=== PATIENT | female | born 2000 | race Caucasian/White ===

== ENCOUNTER 2024-10-25 09:32 | Emergency (ER) | payer MEDICAID, SELFPAY ==
[2024-10-25 09:48] VITALS: BP 132/85; PULSE 99; RESP 19; TEMP 37.2; O2SAT 98; BMI 34.4
--- NOTE | 2024-10-25 09:55 | XR_ITS ---
Examination: Complete OB ultrasound, less than 14 weeks, transabdominal Date and time of exam: October 25, 2024 1016 hrs. Indications: Vaginal bleeding beginning 2 hours ago Technique: Obstetrical ultrasound images less than 14 weeks performed via transabdominal imaging Findings: A normal shaped single intrauterine gestation is present in the uterus. Uterus 13.2 x 9.3 x 9.8 cm pole 6.4 cm corresponds to 12 weeks 6 days gestational age Cardiac motion 166 BPM Ultrasonographic survey of visible and placental structures unremarkable. Amniotic fluid volume appears appropriate for this estimated gestational age. Right ovary 3.6 x 1.9 x 2.2 cm arterial flow Left ovary 4.1 x 2.3 x 3.0 cm arterial flow No fluid in the cul-de-sac Impression: Viable intrauterine gestation 12 weeks 6 days.
[2024-10-25 10:33] LABS: Basophils % (Auto) 0 % (0-2.5); Eosinophils # (Auto) 0.2 Thou/mm3 (0.0-0.5); Eosinophils % (Auto) 2 % (0-10); Hematocrit 31.5 % (36.0-46.0); Hemoglobin 9.6 g/dL (12.0-16.0); Immature Granulocytes % (Auto) 0 % (0-0); Immature Granulocytes Auto 0.04 Thou/mm3 (0.00-0.00); Lymphocytes # (Auto) 2.5 Thou/mm3 (1.0-4.8); Lymphocytes % (Auto) 24 % (10-50); Mean Corpuscular HGB Conc 30.5 g/dl (31.0-37.0); Mean Corpuscular Hemoglobin 20.4 pg (25.0-35.0); Mean Corpuscular Volume 67 fL (80-100); Monocytes # (Auto) 0.6 Thou/mm3 (0.0-0.8); Monocytes % (Auto) 5 % (0-12); Neutrophils % (Auto) 68 % (37-80); Nucleated Red Blood Cell % 0 /100 WBC (0); Platelet Count 368 Thou/mm3 (140-440); RDW Standard Deviation 43.9 fL (36.4-46.3); Red Blood Count 4.71 Miln/mm3 (4.00-5.20); White Blood Count 10.3 Thou/mm3 (3.6-11.0)
[2024-10-25 10:57] LABS: Alanine Aminotransferase 12 U/L (10-49); Albumin, Serum 4.8 gm/dL (3.5-5.0); Albumin/Globulin Ratio 1.9 (1.2-2.2); Alkaline Phosphatase 65 U/L (46-116); Anion Gap 8 (7-16); Aspartate Amino Transferase 13 U/L (0-34); BUN/Creatinine Ratio 12 Ratio (12-20); Bilirubin,Total 0.3 mg/dL (0.3-1.2); Blood Urea Nitrogen 7 mg/dL (9-23); Calcium 9.4 mg/dL (8.3-10.6); Calcium (Corrected) 9.4 mg/dL (8.5-10.1); Carbon Dioxide 22.6 mMol/L (20.0-31.0); Chloride 105 mMol/L (98-107); Creatinine (Component) 0.6 mg/dL (0.6-1.3); Estimated Creatinine Clearance 165.2 mL/min (>60); Globulin 2.5 gm/dL (2.3-3.5); Glucose 86 mg/dL (74-106); Osmolality,Calculated 268 (275-295); Potassium 3.9 mMol/L (3.4-5.1); Sodium 136 mMol/L (136-145); Total Protein 7.3 gm/dL (5.7-8.2); eGFR > 60 See Note
--- NOTE | 2024-10-25 11:04 | PD.EDVAGBL ---
ED OB Contraction Preg RMI/HPI General Chief complaint: Vaginal Bleeding Stated complaint: Vaginal bleeding, 12 weeks OB Time Seen by Provider: 10/25/24 09:38 Arrival date/time: 10/25/24 09:32 24-year-old female G5, presents to the emergency department complains of vaginal spotting ongoing x 1 day patient reports being approximate 12 weeks patient reports based on her history she is nervous and came to the ER for further evaluation Limitations: no limitations Related Data Previous Rx's ?Medication ?Instructions ?Recorded ibuprofen 800 mg tablet 800 mg PO Q8H #21 tabs 03/25/24 Allergies Allergy/AdvReac Type Severity Reaction Status Date / Time pineapple Allergy Severe HIVES, Verified 11/07/23 13:55 DIFF. BREATHING Review of Systems Review of Systems Systems Reviewed: All systems reviewed, normal except as documented Constitutional Constitutional: Reports system reviewed and no additional complaints, except as documented, Denies fever(s) and Denies headache(s) Eyes Eyes: Reports system reviewed and no additional complaints, except as documented and Denies blurry vision ENT Ears, Nose, Mouth, and Throat: Reports system reviewed and no additional complaints, except as documented, Denies headache(s), Denies nasal congestion and Denies nasal discharge Cardiovascular Cardiovascular: Reports system reviewed and no additional complaints, except as documented, Denies chest pain and Denies dyspnea Respiratory Respiratory: Reports system reviewed and no additional complaints, except as documented, Denies chest congestion, Denies cough and Denies dyspnea Gastrointestinal Gastrointestinal: Reports system reviewed and no additional complaints, except as documented and Denies abdominal pain Genitourinary Genitourinary: Reports system reviewed and no additional complaints, except as documented and Reports abnormal vaginal bleeding Integumentary/Breasts Skin/Breast: Reports system reviewed and no additional complaints, except as documented and Denies rash Neurologic Neurologic: Reports system reviewed and no additional complaints, except as documented, Reports as per HPI and Denies headache(s) Past Medical History Past Medical History NEUROLOGIC: Positive Neurological Disorders and Seizures CARDIAC: Negative Cardiac Disorders, Congestive Heart Failure, Edema, Cellulitis or Varicose Veins RESPIRATORY: Negative Chronic Obstructive Pulmonary Disease (COPD), Asthma, Tuberculosis, Pulmonary Embolism or Sleep Apnea GASTROINTESTINAL: Positive Gastrointestinal Disorders and Gall Bladder Disease; Negative Hepatitis GENITOURINARY: Negative Genitourinary Disorders or Renal Disease REPRODUCTIVE: Positive Breast Cancer and Previous Pregnancies MUSCULOSKELETAL: Negative Musculoskeletal Disorders ENT: Positive Deafness ENDOCRINE: Negative Endocrine Disorders, Diabetes Mellitus Type 1 or Diabetes Mellitus Type 2 HEMATOLOGIC: Positive Blood Disorders and Anemia; Negative Sickle Cell Disease OTHER HISTORY: Positive Breast Cancer; Negative Hospitalization, Autoimmune Disease, Shingles, Falls, Blood Transfusions, Blood Transfusion Reaction, Anesthesia Reactions, Chemotherapy, Radiation Therapy, MRSA, Chicken Pox, Measles, Mumps, Clostridium Difficile or Cancer Family History FAMILY HISTORY: Positive Family Respiratory Disorders, Family Cardiac Disorders, Family Gastrointestinal Problems and Family Surgery; Negative Family Psychiatric Problems, Family Cancer or Family Anesthesia Reaction Surgical History SURGICAL: Positive Tympanostomy Tube and Tonsillectomy; Negative Cardiac Surgery, Pacemaker or Section Social History SMOKING STATUS: Never smoker SUBSTANCE USE: does not use ED Exam General Limitations: Present no limitations General appearance: Present alert and in no apparent distress Head Head exam: Present atraumatic, normocephalic and normal inspection Eye Eye exam: Present normal appearance, PERRL and EOMI; Absent conjunctival injection ENT ENT exam: Present normal exam, normal oropharynx and mucous membranes moist Neck Neck exam: Present normal inspection, full ROM and trachea midline Chest Chest inspection: Present normal inspection and symmetric chest wall rise Respiratory Respiratory exam: Present normal lung sounds bilaterally; Absent respiratory distress Cardiovascular Cardiovascular exam: Present regular rate, normal rhythm and normal heart sounds Abdominal Exam Abdominal exam: Present soft and normal bowel sounds; Absent distention, tenderness, guarding, rebound, rigidity or tenderness at McBurney's Point Abdominal tenderness: Absent RUQ or RLQ Extremities Exam Extremities exam: Present normal inspection and full ROM Back Exam Back exam: Present normal inspection and full ROM Neurological Exam Neurological exam: Present alert, oriented X3 and CN II-XII intact Psychiatric Psychiatric exam: Present normal affect and normal mood Skin Skin exam: Present warm, dry, intact and normal color Course Quality Measures none Orders Category Date Time Status US OB <= 14 weeks fetus Stat Exams 10/25/24 09:55 Completed ABO/RH Type Stat Lab 10/25/24 10:12 Completed Beta HCG,Quantitative Stat Lab 10/25/24 10:12 Completed CBC Stat Lab 10/25/24 10:12 Completed Comprehensive Metabolic Panel Stat Lab 10/25/24 10:12 Completed Vital Signs Vital signs: Vital Signs Temperature 99.0 F 10/25/24 09:48 Pulse Rate 99 10/25/24 09:48 Respiratory Rate 19 10/25/24 09:48 Blood Pressure 132/85 H 10/25/24 09:48 Pulse Oximetry (%) 98 10/25/24 09:48 Oxygen Delivery Method Room Air 10/25/24 09:48 O2 saturation 98% on room air within normal limit Vaginal Bleeding MDM Narrative MDM Narrative: 24-year-old female G5, presents to the emergency department complains of vaginal spotting ongoing x 1 day patient reports being approximate 12 weeks patient reports based on her history she is nervous and came to the ER for further evaluation On exam patient well-appearing patient does not appear ill or toxic in no acute distress Ultrasound consistent with viable hCG is reassuringPatient is O+ Patient discharged home in no distress to follow-up with LEGAL ARBITRATOR in the next 24 to 48 hours and for any worsening symptoms to return to the ER immediately Patient data External records reviewed:: [facility] previous records Clinical information provided by:: patient Social determinants that could affect healthcare access:: none Patient has the following chronic illnesses:: None How is presenting disease/condition affected by chronic disease/condition?: no chronic disease Evaluation data The following diagnostics were reviewed and interpreted by me:: lab results and radiology exam(s) Lab and/or radiology exams considered but not ordered:: Labs and radiology obtained Interpretation Summary: Reviewed by me Medications / Prescriptions Medications or Prescriptions considered but not ordered:: No meds Medication administrations:: No meds Consultations Consultation(s) initiated? (list below): No Diagnosis Vaginal Bleeding Differential Diagnosis: missed and threatened Most likely diagnosis given after review of the tests above:: Bleeding early Admission Indicated Admission indicated?: not indicated Admission Request Was there a request for admission?: No Disposition Plan Disposition Plan: Discharge Discharge Attestation Discharge Attestation: The patient and all family members were given an opportunity to ask questions and understood the discharge instructions. Discharge instructions specifically effects, indications for sooner follow up or return to the emergency department, and the expected course of current diagnosis. Patient condition: Stable Discharge Plan Plan Patient Disposition: HOME (Self Care) Disposition Comment: Stable Prescriptions/Referrals Prescriptions/Med Rec: No Action ibuprofen 800 mg tablet 800 mg PO Q8H Qty: 21 0RF Referrals: Blaze Benítez MD [Primary Care Provider] - In 1 week Problem List Clinical Impression: Bleeding in early Patient/Caregiver Discharge Instructions Education Materials: Bleeding During Early Additional Instructions: Please follow-up with LEGAL ARBITRATOR as discussed for worsening symptoms return immediately Print Language: Latvian Stand Alone Forms: [employer] Award Info., Work/School Release, Patient Portal Info Letter PA/CHARTERED FINANCIAL ANALYST Supervising Physician PA/CHARTERED FINANCIAL ANALYST Supervising Physician: Dr Quintana
[2024-10-25 11:37] LABS: Beta HCG,Quantitative 55771 mIU/mL (<5.0)
== END 2024-10-25 11:10 | disposition home or self-care (01) ==
PROVIDERS: Nurse Practitioner Primary Care; Emergency Provider Emergency Medicine; PCP Family Medicine
DX: O20.9 Hemorrhage in early pregnancy, unspecified (principal); Z3A.12 12 weeks gestation of pregnancy
CPT/HCPCS: 36415; 76801; 80053; 84702; 85025; 86900; 86901; 99284

== ENCOUNTER 2025-02-12 16:59 | Observation (INO) | payer MEDICAID, SELFPAY ==
[2025-02-12] VITALS (34 sets, daily range): BP systolic 105–119; BP diastolic 55–59; PULSE 82–116; RESP 18–119; TEMP 36.9–37.1; O2SAT 85–100; BMI 36.6
--- NOTE | 2025-02-12 17:49 | XR_ITS ---
Examination: Transvaginal ultrasound of the pelvis, Limited Technique: Transvaginal sonographic images pelvis performed using schuster scale imaging Exam date and time: February 12, 2025 1854 hrs. Indications: Vaginal bleeding and discharge beginning 4:00 PM today Findings: Cervix 4.19 cm, closed Impression: Cervix 4.19 cm
--- NOTE | 2025-02-12 17:49 | XR_ITS ---
Examination: Complete OB ultrasound greater than 14 weeks Date and time of exam: February 12, 2025 1646 hrs. Indications: Vaginal bleeding and discharge beginning 4:00 PM today Findings: Viable intrauterine single fetus with single amniotic sac presentation cephalic Cardiac motion 147 BPM Placenta posterior grade 1 Umbilical cord insertion seen Amniotic fluid index 5.8 cm spine anterior Cervix 4.1 cm Ovaries obscured by the fetus Composite estimated gestational age based on BPD, head circumference, abdominal circumference, femur length is 20 weeks 2 days Estimated weight 1212 g. Survey of intracranial anatomy, spinal anatomy, abdominal anatomy, four-chamber heart performed with no abnormalities identified. Impression: Viable intrauterine gestation cephalic presentation.
[2025-02-12] MEDS: ACETAMINOPHEN 325 MG TABLET 975 MG PO (18:00)
[2025-02-12 18:26] LABS: Collection Type, Urine Clean Catch
[2025-02-12 19:07] LABS: Bacteria,Urine Rare; Bilirubin,Urine Negative (Negative); Blood,Urine Negative (Negative); Clarity,Urine Turbid (Clear/Hazy); Color,Urine Yellow (Lt Yel-Yel); Glucose, Urine Negative (Negative); Ketones,Urine Negative (Negative); Leukocyte Esterase,Urine Positive (Negative); Nitrite,Urine Negative (Negative); Protein,Urine Trace (Neg - Trace); RBC,Urine 4 /hpf (0-3); Specific Gravity,Urine 1.023 (1.001-1.035); Squamous Epithelial Cell,Urine 41 /hpf (0-5); Urobilinogen,Urine Negative mg/dL (0.0-1.0); WBC,Urine 47 /hpf (0-5)
[2025-02-12] MEDS: cefTRIAXone 1,000 MG, LIDOCAINE 1% 20 ML 2.1 ML IM (20:31)
== END 2025-02-12 20:35 | disposition home or self-care (01) ==
PROVIDERS: Admitting Provider Specialist; PCP Family Medicine; Visit Provider Specialist
DX: O46.92 Antepartum hemorrhage, unspecified, second trimester (principal); Z3A.20 20 weeks gestation of pregnancy
CPT/HCPCS: 59025; 59899; 76805; 76830; 81001; 87086; 96372; J0696; J3490; A9270

== ENCOUNTER 2025-03-20 08:34 | Observation (INO) | payer MEDICAID, SELFPAY ==
[2025-03-20] VITALS (149 sets, daily range): BP systolic 87–127; BP diastolic 42–59; PULSE 100–155; RESP 18–98; TEMP 36.3–36.8; O2SAT 91–100; BMI 34.9; BMI 35.9
--- NOTE | 2025-03-20 08:52 | XR_ITS ---
Examination: Biophysical profile, ultrasound Date and time of exam: March 20, 2025 0931 hours INDICATION: Pelvic cramping beginning today Technique: Multiple transabdominal sonographic images of the pelvis abdomen obtained. Attention is directed to the breathing movement, gross body movement, amniotic fluid volume and tone. Findings: Amniotic fluid index 7.0 cm Total biophysical profile is 8 of 8. breathing movement is 2. Gross body movement is 2. tone is 2. Qualitative amniotic fluid volume is 2 Impression: Biophysical profile is 8 of 8.
[2025-03-20] MEDS: ONDANSETRON INJ 2 MG/ML INJ 2 ML 4 MG IVP (09:30)
--- NOTE | 2025-03-20 09:33 | PC.NURSE ---
Diver'S Tender at bedside for complete OB
--- NOTE | 2025-03-20 09:42 | PC.NURSE ---
0835 pt arrived via wheelchair to Triage with c/o Nausea/Vomiting that began yesterday at 2100 and has continued unitl now. She also has c/o vaginal Cramping that is irregular. Denies any leaking or bleeding, reports active FM. denies trauma or exposure to any illnesses. Abdomen soft at palpation. , Ectopic 2022. FHT per doppler 150. Denies any other medical history. Reports good PNC at 6 weeks. Sees Kizzy CABAN at [facility]. in early ultrasounds for baby but pt states last US on 02/27 she was told was not visible anymore. No other complaints.
--- NOTE | 2025-03-20 09:47 | PC.NURSE ---
0845- MD Lea in unit covering for [facility]. Sbar report given, orders received for IV with 1l LR. PRN Zofran 4m IVP and Phenegran 25mg IVPB prn, and Protonix 40mg IVP. Complete OB ordered, NST, CBC, and CMP.
--- NOTE | 2025-03-20 09:52 | PC.NURSE ---
0950- EFMX2 REAPPLIED. COMPLETE OB COMPLETED.
[2025-03-20 09:59] LABS: Basophils % (Auto) 0 % (0-2.5); Eosinophils % (Auto) 0 % (0-10); Hematocrit 25.6 % (36.0-46.0); Immature Granulocytes % (Auto) 1 % (0-0); Immature Granulocytes Auto 0.11 Thou/mm3 (0.00-0.00); Lymphocytes # (Auto) 0.5 Thou/mm3 (1.0-4.8); Lymphocytes % (Auto) 4 % (10-50); Mean Corpuscular HGB Conc 29.7 g/dl (31.0-37.0); Mean Corpuscular Hemoglobin 20.2 pg (25.0-35.0); Mean Corpuscular Volume 68 fL (80-100); Monocytes # (Auto) 0.3 Thou/mm3 (0.0-0.8); Monocytes % (Auto) 2 % (0-12); Neutrophils # (Auto) 12.5 Thou/mm3 (1.8-7.7); Neutrophils % (Auto) 93 % (37-80); Nucleated Red Blood Cell % 0 /100 WBC (0); Platelet Count 295 Thou/mm3 (140-440); Red Blood Count 3.76 Miln/mm3 (4.00-5.20); White Blood Count 13.5 Thou/mm3 (3.6-11.0)
[2025-03-20 10:00] LABS: Hemoglobin 7.6 g/dL (12.0-16.0)
[2025-03-20 10:13] LABS: Alanine Aminotransferase 7 U/L (10-49); Albumin, Serum 4.3 gm/dL (3.5-5.0); Albumin/Globulin Ratio 1.7 (1.2-2.2); Alkaline Phosphatase 134 U/L (46-116); Anion Gap 14 (7-16); Aspartate Amino Transferase 15 U/L (0-34); BUN/Creatinine Ratio 12 Ratio (12-20); Blood Urea Nitrogen 6 mg/dL (9-23); Calcium 9.5 mg/dL (8.3-10.6); Calcium (Corrected) 9.5 mg/dL (8.5-10.1); Carbon Dioxide 17.1 mMol/L (20.0-31.0); Chloride 104 mMol/L (98-107); Creatinine (Component) 0.5 mg/dL (0.6-1.3); Estimated Creatinine Clearance 195.5 mL/min (>60); Globulin 2.6 gm/dL (2.3-3.5); Glucose 101 mg/dL (74-106); Osmolality,Calculated 267 (275-295); Potassium 3.7 mMol/L (3.4-5.1); Sodium 135 mMol/L (136-145); Total Protein 6.9 gm/dL (5.7-8.2); eGFR > 60 See Note
[2025-03-20] MEDS: PANTOPRAZOLE INJ 40 MG VIAL IVP (10:46)
[2025-03-20] MEDS: SODIUM CHLORIDE 0.9% 250 ML 250 ML 999 ML IV ×2 (11:26→13:15)
--- NOTE | 2025-03-20 12:10 | PC.NURSE ---
approx 1100- MD called with lab results including hgb 7.5, bpp 8/8 lisa 7.0. Per Md, observe for another 2 hours and the repeat sve and reevaluate POC.
[2025-03-20] MEDS: PROMETHAZINE INJ 25 MG in SODIUM CHLORIDE 0.9% 50 ML 102 MG IV (12:13)
[2025-03-20] MEDS: SODIUM CHLORIDE 0.9% 1000 ML 1,000 ML 200 ML IV ×2 (13:21→19:41)
[2025-03-20] MEDS: ACETAMINOPHEN IVPB 1,000 MG/100 ML VIAL 250 MG IV ×2 (13:22→19:41)
[2025-03-20] MEDS: TERBUTALINE SULF INJ 1 MG/ML VIAL 0.25 MG SC (13:22)
--- NOTE | 2025-03-20 15:38 | PD.LDANTE ---
Documentation for date of: 03/20/25 OB Labor/Induct. HPI History of Present Illness Chief complaint: Contractions and pain : 5 Para: 1 Term pregnancies: 0 pregnancies: 1 Living children: 1 History of Abortions: Spontaneous and Elective: 3 History of Vaginal deliveries: 1 History of sections: No History of : No Date of last menstrual period: 08/12/24 LIDA: 05/09/25 Gestational Age (weeks): 32 Gestational Age (days): 6 Gestational age based on last menstrual period: 31 History of present illness: 24-year-old 5 para 0-1-3-1 at 32 weeks and 6 days presents to labor and delivery with severe lower abdominal pain as well as contractions. Patient also reports nausea and vomiting, she denies any leakage of fluid or vaginal bleeding. Notably she has a history of delivery in her previous at 35 weeks. Patient states that she went into spontaneous labor with dilatation of cervix without any rupture of membranes in her previous . She has a history of 2 therapeutic abortions and 1 ectopic in the past. She denies any fevers or chills or any other systemic symptoms at this time. History of Present Adequate Care: Yes Labs Labs: Positive: Rubella Titre, Negative: RPR, Hepatitis B, HIV, Chlamydia and Gonorrhea and Unknown: Herpes Type 1, Herpes Type 2, Group Beta Strep and Covid-19 Review of Systems Review of Systems Systems Reviewed: All systems reviewed, normal except as documented Past Medical History Surgical History SURGICAL: Negative Section Meds Home Medications and Allergies Home Medications ?Medication ?Instructions ?Recorded ?Confirmed ?Type ferrous sulfate 325 mg (65 mg 325 mg PO .qod 02/12/25 03/20/25 History iron) tablet folic acid 1 mg tablet 1 mg PO QDAY 02/12/25 03/20/25 History vits no.130-ferrous fum 1 tab PO .q day 02/12/25 03/20/25 History 27 mg iron-folic acid 800 mcg tablet ( Vitamin) Allergies Allergy/AdvReac Type Severity Reaction Status Date / Time pineapple Allergy Severe HIVES, Verified 02/12/25 17:44 DIFF. BREATHING OB Exam Physical Exam Vital signs: Temp Pulse Resp BP Pulse Ox 98.1 F 130 H 18 99/53 L 98 03/20/25 14:30 03/20/25 15:37 03/20/25 08:35 03/20/25 15:37 03/20/25 15:35 Constitutional Constitutional: no acute distress Routine HEENT Exam Head: Present normocephalic and atraumatic Eye: Present EOMI and PERRL ENT: Present mucous membranes moist Routine Neck Exam Neck: Present supple and trachea midline Routine Cardiovascular Exam Cardiovascular: Present RRR Routine Abdominal Exam Abdominal: Present soft and normoactive bowel sounds Detailed Labor and Delivery Exam Dilation (cm): 0 Effacement (%): 0 Cervix position: mid station: -4 Consistency: firm Presentation: Vertex Membranes: intact Baseline heart rate: 130 monitor accelerations: 15x15 monitor decelerations: None Contraction frequency (min): 10 Routine Extremities Exam Extremities: Present full ROM Routine Skin Exam Skin: Present intact, dry and warm Routine Neurological Exam Neurological: Present alert, oriented X3 and CN II-XII intact Routine Psychiatric Exam Psychiatric: Present normal affect and normal thought process OB Results Labs 03/20/25 09:26 03/20/25 09:26 Labs: Short CBC 03/20/25 Range/Units 09:26 WBC 13.5 H (3.6-11.0) Thou/mm3 Hgb 7.6 L (12.0-16.0) g/dL Hct 25.6 L (36.0-46.0) % Plt Count 295 (140-440) Thou/mm3 [facility] 03/20/25 09:26 Sodium 135 L Potassium 3.7 Chloride 104 Carbon Dioxide 17.1 L BUN 6 L Creatinine 0.5 L Glucose 101 Calcium 9.5 Liver Function 03/20/25 Range/Units 09:26 Total Bilirubin 1.0 (0.3-1.2) mg/dL AST 15 (0-34) U/L ALT 7 L (10-49) U/L Alkaline Phosphatase 134 H (46-116) U/L Albumin 4.3 (3.5-5.0) gm/dL OB Assessment & Plan Assessment and Plan (1) contractions: Status: Acute Assessment and plan: Admit to Labor & Delivery for monitoring and management of contractions. Continuous heart rate and contraction monitoring. Cervical exam on admission; repeat if symptoms persist or escalate. IV fluid bolus: 1L Lactated Ringer?s over 1 hour. IV Acetaminophen 1000 mg q6h PRN for uterine cramping or discomfort. Nifedipine (Procardia) 10 mg PO q8h for tocolysis (hold if hypotensive). Betamethasone (Celestone) 12 mg IM now, repeat in 24 hours (x2 doses total) for lung maturity. Morphine 4 mg IV q6h PRN for moderate to severe pain. Labs: CBC with differential, UA with culture, GBS swab Type and screen. Monitor maternal vitals and pain scores q4h. Reassess after initial hydration and medications; repeat cervical exam and update plan based on response. Provide labor education; monitor for signs of labor progression. (2) with history of pre-term labor: Status: Acute
[2025-03-20] MEDS: NIFEdipine 10 MG CAPSULE PO ×2 (15:39→23:27)
[2025-03-20] MEDS: BETAMET ACET/BETAMET NA PH (Celestone) 6 MG/ML VIAL 12 MG IM (15:39)
[2025-03-20] MEDS: DiphenhydrAMINE INJ 50 MG/ML VIAL 25 MG IVP ×2 (15:40→21:40)
[2025-03-20] MEDS: MORPHINE SULF INJ 10 MG/ML VIAL 4 MG IVP ×2 (15:40→21:40)
[2025-03-21] VITALS (328 sets, daily range): BP systolic 91–126; BP diastolic 44–64; PULSE 94–216; RESP 16–18; TEMP 36.1–36.7; O2SAT 88–100
[2025-03-21] MEDS: ACETAMINOPHEN IVPB 1,000 MG/100 ML VIAL 250 MG IV (01:50)
[2025-03-21] MEDS: DiphenhydrAMINE INJ 50 MG/ML VIAL 25 MG IVP (03:16)
[2025-03-21] MEDS: MORPHINE SULF INJ 10 MG/ML VIAL 4 MG IVP ×2 (03:16→22:45)
--- NOTE | 2025-03-21 07:54 | PD.LDPN ---
Documentation for date of: 03/21/25 OB Labor Progress Note Pain Control Pain control: tolerating well Comments: Patient reports cramping pain overnight. She has good movement. No vaginal bleeding or loss of fluids. She was given morphine and Phenergan yesterday and slept. No nausea or vomiting. She states she did have some type of flu when she came in. Of note she is anemic with a hemoglobin of 7.6 and IV iron was written. A second CBC was ordered as her neutrophil percentage was 93% yesterday. Also we will check a urinalysis and a culture. She gets her second dose of steroids today at 1400 Pelvic Exam Dilation (cm): 0 Effacement (%): 75 station: -1 Amniotic membrane status: Intact Contractions Monitor mode: External Contraction frequency: Rare Contraction intensity: Mild Status status: Category l Assessment and Plan Comments: General Diet. Start IV Ancef. Check urinalysis and culture. Give IV iron. Recheck labs today. Possible discharge later today home on oral antibiotics. Will monitor today until later this afternoon. All questions were answered to patient's satisfaction. Of note she does have a history of a 35-week delivery. That baby weighed 6 pounds 15 ounces.
[2025-03-21] MEDS: ceFAZolin/D5W 1 GM IVPB 1 GM/50 ML BAG IV ×2 (08:06→16:24)
[2025-03-21] MEDS: SODIUM CHLORIDE 0.9% 1000 ML 1,000 ML 200 ML IV ×4 (08:06→21:24)
[2025-03-21 08:43] LABS: Collection Type, Urine Voided
[2025-03-21 08:49] LABS: Basophils % (Auto) 0 % (0-2.5); Eosinophils % (Auto) 0 % (0-10); Hematocrit 22.2 % (36.0-46.0); Immature Granulocytes % (Auto) 3 % (0-0); Immature Granulocytes Auto 0.28 Thou/mm3 (0.00-0.00); Lymphocytes % (Auto) 10 % (10-50); Mean Corpuscular HGB Conc 28.8 g/dl (31.0-37.0); Mean Corpuscular Hemoglobin 20.4 pg (25.0-35.0); Mean Corpuscular Volume 71 fL (80-100); Monocytes # (Auto) 0.3 Thou/mm3 (0.0-0.8); Monocytes % (Auto) 3 % (0-12); Neutrophils # (Auto) 8.2 Thou/mm3 (1.8-7.7); Neutrophils % (Auto) 84 % (37-80); Nucleated Red Blood Cell # 0.03 Thou/mm3 (0.00-0.00); Nucleated Red Blood Cell % 0 /100 WBC (0); Platelet Count 261 Thou/mm3 (140-440); RDW Standard Deviation 50.5 fL (36.4-46.3); Red Blood Count 3.14 Miln/mm3 (4.00-5.20); White Blood Count 9.8 Thou/mm3 (3.6-11.0)
[2025-03-21 08:52] LABS: Hemoglobin 6.4 g/dL (12.0-16.0)
[2025-03-21] MEDS: FERRIC SOD GLUC INJ 125 MG in SODIUM CHLORIDE 0.9% 100 ML 110 MG IV (09:59)
--- NOTE | 2025-03-21 10:40 | PC.NURSE ---
Dr. Galindo called, pt rating pain 8/10 feeling ctx every 3-4 mins, tracing showing ctx every 2-4min. Order received for 100 mcg fentanyl and type/screen for 2 units of blood to be transfused for low H/H.
[2025-03-21 10:50] LABS: Bilirubin,Urine Negative (Negative); Blood,Urine Negative (Negative); Clarity,Urine Clear (Clear/Hazy); Color,Urine Yellow (Lt Yel-Yel); Glucose, Urine 3+ (Negative); Ketones,Urine 4+ (Negative); Leukocyte Esterase,Urine Positive (Negative); Nitrite,Urine Negative (Negative); Protein,Urine Trace (Neg - Trace); RBC,Urine 1 /hpf (0-3); Specific Gravity,Urine 1.028 (1.001-1.035); Squamous Epithelial Cell,Urine 7 /hpf (0-5); Urobilinogen,Urine Negative mg/dL (0.0-1.0); WBC,Urine 3 /hpf (0-5)
[2025-03-21] MEDS: fentaNYL CIT INJ 50 mCg/ML AMP 2ML 100 MCG IVP (11:08)
[2025-03-21 12:04] LABS: Amphetamine/Metham Scrn,Ur OB Negative (Negative); Benzoylecgonine Screen, Ur OB Negative (Negative); Opiate Screen,Urine OB Positive (Negative); THC Screen,Urine OB Negative (Negative)
[2025-03-21 12:06] LABS: Opiates U Confirm* See Sep Rpt
[2025-03-21] MEDS: BETAMET ACET/BETAMET NA PH (Celestone) 6 MG/ML VIAL 12 MG IM (14:00)
[2025-03-21] MEDS: ACETAMINOPHEN 325 MG TABLET 650 MG PO (14:52)
[2025-03-21] MEDS: NIFEdipine 10 MG CAPSULE PO ×2 (15:16→22:40)
--- NOTE | 2025-03-21 17:25 | PD.LDPN ---
Documentation for date of: 03/21/25 OB Labor Progress Note Pain Control Comments: Patient still reports cramping abdominal pain. She was given oral Tylenol today and 1 dose of IV fentanyl. No bleeding no loss of fluids. Of note she is quite anemic her second CBC revealed a hemoglobin of 6.4. Patient was given 1 dose of IV iron and 2 units of packed red red blood cells. She was started on Ancef Q8. We will keep her overnight to monitor her hemoglobin in the morning. She received her second dose of steroids today at 1400 Pelvic Exam Dilation (cm): 0 Effacement (%): 75 station: -1 Amniotic membrane status: Intact Contractions Monitor mode: External Contraction frequency: 8-8, irritability Contraction intensity: Mild Status status: Category l Assessment and Plan Plan OB labor note: continuous present management Comments: Okay to shower. Okay for NST every shift. Recheck hemoglobin in the morning. Encourage p.o. hydration as the patient was still very dehydrated based on the UA from today.
--- NOTE | 2025-03-21 18:58 | XR_ITS ---
Examination: Complete OB ultrasound greater than 14 weeks Date and time of exam: March 21, 2025 2006 hours INDICATIONS: Onset of pelvic contractions today Findings: Viable intrauterine single fetus with single amniotic sac presentation cephalic Cardiac motion 129 BPM Placenta fundal grade 2 Umbilical cord insertion 3 vessel is seen Amniotic fluid index 5.3 cm spine maternal right Cervix 3.7 cm Ovaries obscured by bowel gas. Composite estimated gestational age based on BPD, head circumference, abdominal circumference, femur length is 33 weeks 3 days Estimated weight 2089 g. Survey of intracranial anatomy, spinal anatomy, abdominal anatomy, four-chamber heart performed with no abnormalities identified. Impression: Viable intrauterine gestation cephalic presentation.
--- NOTE | 2025-03-21 19:08 | XR_ITS ---
Examination: Retroperitoneal ultrasound, complete Technique: Multiple high resolution grayscale images of the retroperitoneum obtained, including kidneys and bladder. Exam date and time:March 14 70,025 2020 hours INDICATIONS: Flank pain today FINDINGS: Right kidney 12.0 cm renal cortex 2.2 cm Left kidney 12.2 cm cortex 1.8 cm Mild bilateral hydronephrosis Mild bilateral renal parenchymal scar formation No hydronephrosis No bladder mass or bladder calculi Bladder prevoid volume 346 cc IMPRESSION: Mild bilateral hydronephrosis Mild bilateral renal parenchymal scar formation
--- NOTE | 2025-03-21 23:10 | PD.LDPN ---
Documentation for date of: 03/21/25 OB Labor Progress Note Pain Control Comments: Patient continues to have crampy lower abdominal pain. Ultrasound was negative for stones. She has bilateral hydronephrosis and some scarring of her renal parenchyma. Pelvic Exam Dilation (cm): 0 Effacement (%): 75 station: -1 Amniotic membrane status: Intact Comments: Patient not examined since this morning. Contractions Monitor mode: External Contraction frequency: irregular Contraction intensity: Mild Status status: Category l Assessment and Plan Plan OB labor note: continuous present management Comments: Patient given 2 units of blood. Check CBC in the morning. Okay for fentanyl as needed switch to oral pain medications in the morning. Pelvic exam in the morning.
[2025-03-22] VITALS (121 sets, daily range): BP systolic 104–140; BP diastolic 54–84; PULSE 70–141; RESP 16–18; TEMP 36.3–37; O2SAT 91–100
[2025-03-22] MEDS: ceFAZolin/D5W 1 GM IVPB 1 GM/50 ML BAG IV ×4 (00:07→22:24)
[2025-03-22 05:16] LABS: Basophils % (Auto) 0 % (0-2.5); Eosinophils % (Auto) 0 % (0-10); Hematocrit 24.7 % (36.0-46.0); Immature Granulocytes % (Auto) 6 % (0-0); Immature Granulocytes Auto 0.84 Thou/mm3 (0.00-0.00); Lymphocytes # (Auto) 1.6 Thou/mm3 (1.0-4.8); Lymphocytes % (Auto) 12 % (10-50); Mean Corpuscular Volume 73 fL (80-100); Monocytes # (Auto) 0.9 Thou/mm3 (0.0-0.8); Monocytes % (Auto) 6 % (0-12); Neutrophils # (Auto) 10.4 Thou/mm3 (1.8-7.7); Neutrophils % (Auto) 76 % (37-80); Nucleated Red Blood Cell # 0.08 Thou/mm3 (0.00-0.00); Nucleated Red Blood Cell % 1 /100 WBC (0); Platelet Count 254 Thou/mm3 (140-440); RDW Standard Deviation 54.3 fL (36.4-46.3); Red Blood Count 3.37 Miln/mm3 (4.00-5.20); White Blood Count 13.8 Thou/mm3 (3.6-11.0)
[2025-03-22 05:27] LABS: Hemoglobin 7.4 g/dL (12.0-16.0)
[2025-03-22] MEDS: NIFEdipine 10 MG CAPSULE PO ×3 (06:06→22:24)
[2025-03-22] MEDS: ACETAMINOPHEN 325 MG TABLET 650 MG PO ×3 (06:10→20:29)
--- NOTE | 2025-03-22 12:54 | PD.LDPN ---
Documentation for date of: 03/22/25 OB Labor Progress Note Pain Control Comments: Patient still reports cramping pain. No nausea vomiting diarrhea fevers or chills. She is tolerating a general diet. She was sleeping when I came in to round on her. Pelvic Exam Dilation (cm): 1 Effacement (%): 50 station: -3 Amniotic membrane status: Intact Contractions Monitor mode: External Contraction frequency: Irritability Contraction intensity: Moderate Status status: Category l Assessment and Plan Plan OB labor note: continuous present management Comments: Patient with unclear pain. She has had a course of steroids. If she is in prodromal early labor I would not start magnesium on her. She is on nifedipine already. I wrote [place] which I am not sure she has taken. Is not clear what is causing her pain. I debated ordering a CT or MRI but I do not think this would be helpful. She does not have fevers or chills and she is tolerating a general diet so I doubt she has an ovarian torsion or an appendicitis. She is definitely not acting like a typical kidney stone and rolling around the bed with a lot of pain. I think she either has renal colic or early prodromal labor.
[2025-03-22] MEDS: fentaNYL CIT INJ 50 mCg/ML AMP 2ML 100 MCG IVP ×2 (16:06→22:25)
[2025-03-22] MEDS: SODIUM CHLORIDE 0.9% 1000 ML 1,000 ML 200 ML IV (20:33)
[2025-03-23] MEDS: SODIUM CHLORIDE 0.9% 1000 ML 1,000 ML 200 ML IV ×2 (01:36→06:35)
[2025-03-23] MEDS: ceFAZolin/D5W 1 GM IVPB 1 GM/50 ML BAG IV (06:35)
[2025-03-23 06:36] VITALS: BP 129/65; PULSE 83
[2025-03-23] MEDS: ACETAMINOPHEN 325 MG TABLET 650 MG PO (06:37)
[2025-03-23 06:38] VITALS: BP 129/65; PULSE 83
[2025-03-23] MEDS: NIFEdipine 10 MG CAPSULE PO (06:38)
[2025-03-23 07:39] LABS: Basophils % (Auto) 0 % (0-2.5); Eosinophils % (Auto) 0 % (0-10); Hematocrit 23.7 % (36.0-46.0); Immature Granulocytes % (Auto) 6 % (0-0); Immature Granulocytes Auto 0.61 Thou/mm3 (0.00-0.00); Lymphocytes % (Auto) 20 % (10-50); Mean Corpuscular HGB Conc 30.8 g/dl (31.0-37.0); Mean Corpuscular Hemoglobin 22.5 pg (25.0-35.0); Mean Corpuscular Volume 73 fL (80-100); Monocytes # (Auto) 0.8 Thou/mm3 (0.0-0.8); Monocytes % (Auto) 7 % (0-12); Neutrophils # (Auto) 6.8 Thou/mm3 (1.8-7.7); Neutrophils % (Auto) 66 % (37-80); Nucleated Red Blood Cell # 0.08 Thou/mm3 (0.00-0.00); Nucleated Red Blood Cell % 1 /100 WBC (0); Platelet Count 218 Thou/mm3 (140-440); RDW Standard Deviation 53.8 fL (36.4-46.3); Red Blood Count 3.25 Miln/mm3 (4.00-5.20); White Blood Count 10.2 Thou/mm3 (3.6-11.0)
[2025-03-23 08:14] VITALS: BP 97/51; PULSE 68
[2025-03-23 08:47] LABS: Hemoglobin 7.3 g/dL (12.0-16.0)
--- NOTE | 2025-03-23 09:09 | PD.LDPN ---
Documentation for date of: 03/23/25 OB Labor Progress Note Pelvic Exam Dilation (cm): 1 Effacement (%): 50 station: -3 Amniotic membrane status: Intact Contractions Monitor mode: External Contraction frequency: none noted on monitor Contraction intensity: Moderate Status status: Category l Assessment and Plan Comments: Patient evaluated at bedside. No cervical change, she continues to be uncomfortable but she is not in labor. She has received 2 doses of betamethasone and 2 units of blood transfusion. Reviewed all the clinical findings with the patient. At this time there is no reason to keep her inpatient, we will discharge her home with toco lysis and pain management. Patient has a office some appointment with her provider in 3 to 4 days. She will follow-up in the office as scheduled.
[2025-03-23 09:33] VITALS: BP 112/57; PULSE 71
== END 2025-03-23 11:00 | disposition home or self-care (01) | DRG 566 ==
LOC: S4SX 03-23 09:13 → S4NX 04-05 07:17
PROVIDERS: Obstetrics & Gynecology; Admitting Provider Obstetrics & Gynecology; Visit Provider Obstetrics & Gynecology
DX: O60.03 Preterm labor without delivery, third trimester (principal); O99.013 Anemia complicating pregnancy, third trimester; D64.9 Anemia, unspecified; O99.283 Endocrine, nutritional and metabolic diseases complicating pregnancy, third trimester; E86.0 Dehydration; O26.833 Pregnancy related renal disease, third trimester; N13.30 Unspecified hydronephrosis; O21.2 Late vomiting of pregnancy; O09.293 Supervision of pregnancy with other poor reproductive or obstetric history, third trimester; Z3A.32 32 weeks gestation of pregnancy
CPT/HCPCS: 36415; 36430; 59899; 76770; 76805; 76819; 80053; 80307; 81001; 85025; 86850; 86900; 86901; 86923; 87086; 96361; 96365; 96366; 96372; 96375; G0378; J0131; J0689; J0702; J1200; J2270; J2405; J2470; J2550; J2916; J3010; J3105; J7030; J7050; P9016; A9270

== ENCOUNTER 2025-04-03 19:50 | Observation (INO) | payer MEDICAID, SELFPAY ==
[2025-04-03] VITALS (28 sets, daily range): BP systolic 122–131; BP diastolic 68–69; PULSE 84–120; RESP 18–98; TEMP 36.8; O2SAT 96–100; BMI 35.9
[2025-04-03 20:42] LABS: ROM Kit Lot # 578010271; Swb Mxed in Solvent 1 min? Yes
[2025-04-03 20:43] LABS: ROM Swab Mixed By: DS; Rupture of Fetal Membranes Negative (Negative)
[2025-04-03 21:11] LABS: Collection Type, Urine Voided
[2025-04-03 21:24] LABS: Amorphous Crystals,Urine Present (Absent); Bacteria,Urine 1+; Bilirubin,Urine Negative (Negative); Blood,Urine Negative (Negative); Color,Urine Yellow (Lt Yel-Yel); Glucose, Urine Negative (Negative); Ketones,Urine Negative (Negative); Leukocyte Esterase,Urine Positive (Negative); Nitrite,Urine Negative (Negative); Protein,Urine Negative (Neg - Trace); RBC,Urine 4 /hpf (0-3); Specific Gravity,Urine 1.019 (1.001-1.035); Squamous Epithelial Cell,Urine 11 /hpf (0-5); Urobilinogen,Urine Negative mg/dL (0.0-1.0); WBC,Urine 71 /hpf (0-5)
[2025-04-03 21:25] LABS: Clarity,Urine Cloudy (Clear/Hazy)
[2025-04-03 21:57] LABS: FFN Specimen Descripton Clr Colrless Aqueous; Fetal Fibronectin Negative (Negative)
[2025-04-03] MEDS: NITROFURANTOIN MACRO 100 MG CAPSULE PO (22:20)
== END 2025-04-03 22:22 | disposition home or self-care (01) ==
PROVIDERS: Admitting Provider Specialist; Visit Provider Specialist
DX: Z34.83 Encounter for supervision of other normal pregnancy, third trimester (principal); Z3A.34 34 weeks gestation of pregnancy
CPT/HCPCS: 59025; 59899; 81001; 82731; 84112; A9270

== ENCOUNTER 2025-04-12 21:49 | Observation (INO) | payer MEDICAID, SELFPAY ==
[2025-04-12] VITALS (29 sets, daily range): BP systolic 101–133; BP diastolic 58–76; PULSE 93–136; RESP 20–98; TEMP 36.8; O2SAT 91–100; BMI 36.3
[2025-04-12 22:21] LABS: ROM Kit Lot # 578010271; ROM Swab Mixed By: DS; Rupture of Fetal Membranes Negative (Negative); Swb Mxed in Solvent 1 min? Yes
--- NOTE | 2025-04-12 22:31 | XR_ITS ---
Examination: Complete OB ultrasound greater than 14 weeks Date and time of exam: April 12, 2025 at 1101 hours INDICATIONS: Leaking amniotic fluid beginning 7:00 PM today Findings: Viable intrauterine single fetus with single amniotic sac presentation cephalic Cardiac motion 167 BPM Placenta anterior maternal left grade 2 Umbilical cord insertion seen Amniotic fluid index 8.2 cm Cervix 3.1 cm Ovaries obscured by the gestation. Composite estimated gestational age based on BPD, head circumference, abdominal circumference, femur length is 36 weeks 0 days Estimated weight 2825 g. Survey of intracranial anatomy, spinal anatomy, abdominal anatomy, four-chamber heart performed with no abnormalities identified. Impression: Viable intrauterine gestation cephalic presentation.
[2025-04-13] VITALS (102 sets, daily range): BP systolic 99–129; BP diastolic 55–81; PULSE 79–115; RESP 18; TEMP 36.5–36.6; O2SAT 90–100
[2025-04-13] MEDS: PANTOPRAZOLE 20 MG TABLET PO (00:11)
[2025-04-13] MEDS: ACETAMINOPHEN 500 MG TABLET 1000 MG PO (01:47)
[2025-04-13] MEDS: RINGERS LACTATED 1000 ML 1,000 ML 999 ML IV (02:01)
--- NOTE | 2025-04-13 07:00 | XR_ITS ---
Examination: Biophysical profile, ultrasound Date and time of exam: April 13, 2025 0747 hours INDICATIONS: Prolonged deceleration on stress testing today Technique: Multiple transabdominal sonographic images of the pelvis abdomen obtained. Attention is directed to the breathing movement, gross body movement, amniotic fluid volume and tone. Findings: Amniotic fluid index 7 cm Total biophysical profile is 8 of 8. breathing movement is 2. Gross body movement is 2. tone is 2. Qualitative amniotic fluid volume is 2 Impression: Biophysical profile is 8 of 8.
== END 2025-04-13 09:30 | disposition home or self-care (01) ==
PROVIDERS: Admitting Provider Student in an Organized Health Care Education/Training Program; Visit Provider Student in an Organized Health Care Education/Training Program
DX: Z34.83 Encounter for supervision of other normal pregnancy, third trimester (principal); Z3A.36 36 weeks gestation of pregnancy
CPT/HCPCS: 59025; 59899; 76805; 76819; 84112; G0378; J7120; A9270

== ENCOUNTER 2025-04-22 21:36 | Observation (INO) | payer MEDICAID, SELFPAY ==
[2025-04-22] VITALS (28 sets, daily range): BP systolic 112–138; BP diastolic 58–66; PULSE 88–138; RESP 97; TEMP 36.9; O2SAT 96–99; BMI 36.7
[2025-04-23 00:01] VITALS: PULSE 94; O2SAT 100
[2025-04-23 00:07] VITALS: PULSE 94; O2SAT 99
[2025-04-23 00:12] VITALS: PULSE 103; O2SAT 99
== END 2025-04-23 00:27 | disposition home or self-care (01) ==
PROVIDERS: Admitting Provider Obstetrics & Gynecology; Visit Provider Obstetrics & Gynecology
DX: O47.1 False labor at or after 37 completed weeks of gestation (principal); Z3A.37 37 weeks gestation of pregnancy
CPT/HCPCS: 59025; 59899

== ENCOUNTER 2025-05-05 01:26 | Inpatient (IN) | payer MEDICAID, SELFPAY ==
[2025-05-05] VITALS (203 sets, daily range): BP systolic 85–136; BP diastolic 43–90; PULSE 67–114; RESP 16–98; TEMP 36.5–36.9; O2SAT 86–100; BMI 37.3; BMI 37.1
--- NOTE | 2025-05-05 02:14 | XR_ITS ---
Examination: Complete OB ultrasound greater than 14 weeks Date and time of exam: May 05, 2025 0237 hours INDICATIONS: Liver evaluation, pelvic contractions Findings: Viable intrauterine single fetus with single amniotic sac presentation cephalic Cardiac motion 138 BPM Placenta anterior grade 3 Umbilical cord insertion seen Amniotic fluid index 9.2 cm Cervix 4.0 cm Ovaries obscured by bowel gas. Composite estimated gestational age based on BPD, head circumference, abdominal circumference, femur length is 36 weeks 5 days Estimated weight 3951 g. Survey of intracranial anatomy, spinal anatomy, abdominal anatomy, four-chamber heart performed with no abnormalities identified. Impression: Viable intrauterine gestation in cephalic presentation.
[2025-05-05 03:05] LABS: Basophils # (Auto) 0.0 Thou/mm3 (0.0-0.2); Basophils % (Auto) 0 % (0-2.5); Eosinophils # (Auto) 0.1 Thou/mm3 (0.0-0.5); Eosinophils % (Auto) 1 % (0-10); Hematocrit 29.0 % (36.0-46.0); Hemoglobin 9.0 g/dL (12.0-16.0); Immature Granulocytes Auto 0.25 Thou/mm3 (0.00-0.00); Lymphocytes # (Auto) 2.9 Thou/mm3 (1.0-4.8); Lymphocytes % (Auto) 21 % (10-50); Mean Corpuscular HGB Conc 31.0 g/dl (31.0-37.0); Mean Corpuscular Hemoglobin 22.9 pg (25.0-35.0); Mean Corpuscular Volume 74 fL (80-100); Monocytes # (Auto) 0.9 Thou/mm3 (0.0-0.8); Monocytes % (Auto) 6 % (0-12); Neutrophils # (Auto) 9.8 Thou/mm3 (1.8-7.7); Neutrophils % (Auto) 70 % (37-80); Nucleated Red Blood Cell # 0.00 Thou/mm3 (0.00-0.00); Nucleated Red Blood Cell % 0 /100 WBC (0); Platelet Count 266 Thou/mm3 (140-440); RDW Standard Deviation 57.3 fL (36.4-46.3); Red Blood Count 3.93 Miln/mm3 (4.00-5.20); White Blood Count 14.0 Thou/mm3 (3.6-11.0)
[2025-05-05 03:16] LABS: Amphetamine/Metham Scrn,Ur OB Negative (Negative); Benzoylecgonine Screen, Ur OB Negative (Negative); Opiate Screen,Urine OB Negative (Negative); THC Screen,Urine OB Negative (Negative)
[2025-05-05] MEDS: RINGERS LACTATED 1000 ML 1,000 ML 100 ML IV ×2 (03:30→09:15)
[2025-05-05 03:40] LABS: Syphilis Nonreactive (Nonreactive)
--- NOTE | 2025-05-05 04:05 | PRELIM_ITS ---
Obstetric ultrasound. May 05, 2025 0237 hours Clinical history: HX: SEIZURE, ANEMIA Comparison: No prior study is available for comparison. Findings: There is a gravid uterus with a live fetus in cephalic presentation of mean gestational age 36 weeks and 5 days (by biometry). cardiac activity is present at a heart rate of 138 beats per minute. The placenta is anterior in location, maturity grade III. There is no evidence of placenta previa or retroplacental hemorrhage. Amniotic fluid is adequate (SUSHMA = 9.2 cm). Estimated weight is 2951 grams+/- 437 grams. Estimated due date by ultrasound is 2024. Cervical length measures 4cm. Impression: Gravid uterus with a single live fetus in cephalic presentation of mean gestational age 36 weeks 5 days. Report Electronically Signed By: Colin Beltrán 05/05/2025 4:04:38 AM [EST]
--- NOTE | 2025-05-05 05:29 | ESHP_ITS ---
Documentation for date of: 05/05/25 OB Labor/Induct. HPI History of Present Illness Chief complaint: Induction of Labor : 5 Para: 1 Term pregnancies: 0 pregnancies: 1 Living children: 1 History of Abortions: Spontaneous and Elective: 2 History of Vaginal deliveries: 1 History of sections: No History of : No Date of last menstrual period: 08/02/24 LIDA: 05/09/25 Gestational age based on last menstrual period: 39 History of present illness: Soumya Hahn is a 24-year-old patient with a history of seizure disorder and one ectopic , presenting for induction of labor at 39 weeks and 4 days gestation. Her obstetric history includes a 34-week delivery in 2021, an ectopic with left salpingectomy in 2022, and two early losses in 2023 managed with suction and curettage (S&C) and dilation and curettage (D&C) respectively. The patient's current has an estimated due date of May 09, 2025, based on her last menstrual period, which is consistent with a 12-week and 4-day ultrasound. She has been receiving care at [facility]. At 32 weeks and 6 days gestation, she was admitted to the hospital with multiple episodes of severe lower abdominal pain and contractions, accompanied by nausea and vomiting. She was subsequently discharged home. On presentation for induction, the patient's cervical exam revealed 3 cm dilation, 50% effacement, and high station with intact membranes. heart tones showed a baseline of 145 bpm with moderate variability and accelerations, without decelerations. The patient is noted to be Group B streptococcus- negative, requiring no prophylaxis. Obstetric History: - GTPAL: G5 T0 L1 - Current : - Gestational age: 39 weeks and 4 days at admission - Estimated due date: May 09, 2025 - history: - 2023: Early loss, D&C performed - 2023: Spontaneous - 2022: Ectopic , left salpingectomy - 2021: delivery at 34 weeks Medical History: - Seizure disorder Surgical History: - Left salpingectomy in 2022 for ectopic - Suction and evacuation (S&E) in 2023 - Dilation and curettage (D&C) in 2023 for early loss ROS: Gastrointestinal: Positive for nausea and vomiting. History of Present Adequate Care: Yes Labs Labs: Positive: Rubella Titre, Negative: RPR, Hepatitis B, HIV, Chlamydia, Gonorrhea and Group Beta Strep and Unknown: Herpes Type 1, Herpes Type 2 and Covid-19 Past Medical History Surgical History SURGICAL: Negative Section Meds Home Medications and Allergies Home Medications ?Medication ?Instructions ?Recorded ?Confirmed ?Type ferrous sulfate 325 mg (65 mg 325 mg PO .qod 02/12/25 04/12/25 History iron) tablet folic acid 1 mg tablet 1 mg PO QDAY 02/12/25 History vits no.130-ferrous fum 1 tab PO .q day 02/1204/12/25 History 27 mg iron-folic acid 800 mcg tablet ( Vitamin) Allergies Allergy/AdvReac Type Severity Reaction Status Date / Time pineapple Allergy Severe HIVES, Verified 04/12/25 21:56 DIFF. BREATHING OB Exam Physical Exam Vital signs: Temp Pulse Resp BP Pulse Ox 98.5 F 100 20 104/52 L 98 05/05/25 03:18 05/05/25 05:07 05/05/25 01:41 05/05/25 05:07 05/05/25 05:28 Constitutional Constitutional: no acute distress Routine HEENT Exam Head: Present normocephalic and atraumatic Eye: Present EOMI and PERRL ENT: Present mucous membranes moist Routine Neck Exam Neck: Present supple and trachea midline Routine Cardiovascular Exam Cardiovascular: Present RRR Routine Abdominal Exam Abdominal: Present soft and normoactive bowel sounds Detailed Labor and Delivery Exam Dilation (cm): 3 Effacement (%): 50 Cervix position: mid station: -4 Consistency: firm Presentation: Vertex Membranes: intact Baseline heart rate: 145 monitor accelerations: 15x15 monitor decelerations: None manager long term care variability: Average (6-10) Contraction frequency (min): 5-10 Routine Extremities Exam Extremities: Present full ROM Routine Skin Exam Skin: Present intact, dry and warm Routine Neurological Exam Neurological: Present alert, oriented X3 and CN II-XII intact Routine Psychiatric Exam Psychiatric: Present normal affect and normal thought process OB Results Labs 05/05/25 02:25 Labs: Short CBC 05/05/25 Range/Units 02:25 WBC 14.0 H (3.6-11.0) Thou/mm3 Hgb 9.0 L (12.0-16.0) g/dL Hct 29.0 L (36.0-46.0) % Plt Count 266 (140-440) Thou/mm3 OB Assessment & Plan Assessment and Plan (1) with history of pre-term labor: Status: Acute Assessment and plan: Induction of Labor Plan: - Admit to inpatient labor and delivery - Establish IV access - Obtain labs: CBC, type and screen, OUP, pre-eclampsia panel - Initiate maintenance IV fluids at 125 cc/hr - Initiate oxytocin for induction/augmentation - Offer epidural analgesia when desired - Implement continuous maternal- monitoring - Anticipate vaginal delivery Risk for Hemorrhage Plan: - Monitor closely for signs of hemorrhage - Prepare for potential interventions if needed Group B Streptococcus Status Plan: - No antibiotic prophylaxis indicated Seizure Disorder Plan: - Monitor seizure activity during labor and delivery - Ensure seizure medications are continued as prescribed (2) Encounter for induction of labor: Status: Acute
[2025-05-05] MEDS: OXYTOCIN in NS 30 units 30 UNIT/500 ML BAG IV (05:51)
--- NOTE | 2025-05-05 07:31 | PD.LDPN ---
Documentation for date of: 05/05/25 OB Labor Progress Note Pain Control Pain control: epidural Pelvic Exam Dilation (cm): 4 Effacement (%): 70 station: -1 Amniotic membrane status: Intact Contractions Monitor mode: External Contraction frequency: 1-3 Contraction duration: 40-60 Contraction phase: Contraction Contraction intensity: Moderate Status status: Category l Assessment and Plan Pitocin rate (mU/min): 3 Assessment: induction ongoing Plan OB labor note: continuous present management Comments: Pt is doing well at 4 cm comfortable with the epidural Plan to AROM later today Assuring fetus Updated Dr. Gunn Anticipate
--- NOTE | 2025-05-05 11:32 | PD.LDPN ---
Documentation for date of: 05/05/25 OB Labor Progress Note Pain Control Pain control: epidural Pelvic Exam Dilation (cm): 7 Effacement (%): 90 station: 0 Amniotic membrane status: Ruptured (AROM-clear bloody) Contractions Monitor mode: External Contraction frequency: 2-3 Contraction duration: 40-60 Contraction phase: Contraction Contraction intensity: Moderate Status status: Category l Assessment and Plan Pitocin rate (mU/min): 4 Assessment: active labor Plan OB labor note: continuous present management Comments: AROM performed- clear bloody fluids Pt is progressing well already feeling pressure fetus at 0 station. Reassuring fetus Anticipate
[2025-05-05] MEDS: MINERAL OIL 30 ML UDC TOP (12:50)
[2025-05-05] MEDS: METHYLERGONOVINE INJ 0.2 MG/ML VIAL IM (12:50)
[2025-05-05] MEDS: OXYTOCIN in NS 20 units 20 UNIT/1,000 ML BAG 125 UNIT IV ×2 (12:51→18:03)
[2025-05-05] MEDS: TRANEXAMIC ACID 1,000 MG IVPB 1,000 MG/100 ML BAG 200 MG IV (12:51)
[2025-05-05] MEDS: IBUPROFEN TAB 400 MG TABLET 800 MG PO (12:52)
--- NOTE | 2025-05-05 13:00 | OBDSUM_ITS ---
Data (Rodriguez) Data Hx Section: No Maternal Blood Type: O Pos Rubella Titre: Positive RPR: Non-reactive Labs: Negative: RPR, Hepatitis B, HIV, Chlamydia, Gonorrhea and Group Beta Strep and Unknown: Herpes Type 1 and Herpes Type 2 : 5 Para: 1 Term: 0 : 1 Livin Abortions: Spontaneous & Theraputic: 3 Delivery Data (Rodriguez) Labor Data Initiation of labor: Spontaneous Induction/Augmentation Agent: Pitocin ROM date: 05/05/25 ROM time: 11:32 Amniotic membrane rupture type: Artificial Amniotic fluid description: Clear Delivery Data EDC: 05/09/25 EDC calculated by:: LMP Onset of labor date: 05/05/25 Onset of labor time: 04:30 Complete dilation date: 05/05/25 Complete dilation time: 12:14 delivery date: 05/05/25 [place] delivery time: 12:20 Gestational age (weeks): 39 Gestational age (days): 3 Placenta delivery date: 05/05/25 Placenta delivery time: 12:22 Stage 1 total time: Labor - Stage 1 Duration 7 hours and 44 minutes Delivered by: Christelle Durand Delivery nurse: Gen Slater RN [place] nurse: Harinder, senior android software engineer Grooving Machine Operator at delivery: No Support person(s) at delivery: FOB, Friend Other staff at delivery: RBIAN Johnson Delivery Method Delivery method: Normal Vaginal Delivery Presentation: Vertex position: OA Anesthesia Type Anesthesia Type: Epidural Delivery Room Medications Delivery room medications: Methergine 0.2 mg IM, Pitocin 20 u IV and other (TXA x1) Placenta Placenta delivery description: Spontaneous Cord blood sent to lab: Yes cord blood collection: Cord Blood Type Episiotomy Episiotomy description: None Lacerations #1: Labial: small intriotus tear Perineal repair Sutures used for repair: 3.0 Vicryl (ct) EBL Estimated blood loss (ml): 500 Umbilical Cord cord description: 3 Vessels Additional Procedures Pt was 7 cm AROM was performed with clear fluids, after 30 minutes pt was complete and one push had an of a viable male . delivered in compound presentation with left posterior arm on the check. Left posterior arm delivered first then the anterior shoulder and the body without complications. placed on mother's abdomen, vigorous cry upon delivery. Cord was clamped then cut by FOB. Cord blood obtained. 3-vessel cord noted. Placenta expelled spontaneously and intact. Small intriotus tear, reapaired using a 3.[address] 3 sutures placed. Perineum intact. Excellent hemostasis achieved after a vigorous fundal massage and removal of clots from the posterior fornix. EBL 500. Pt received 1 dose of methergine and 1 dose of TXa and IV pitocin. Sponge and needle count is correct. Mother and baby stable, skin to skin and bonding in LDR . [place] Data (Rodriguez) [place] Data order: 1 's gender: Male Identification band number: [id number] weight (gms): 3435 g Weight (pounds): 7 lbs and 9.2 ozs 1 minute: 9 5 minutes: 9
[2025-05-05] MEDS: BENZO/LANO/ALOE (Dermoplast) 60 GM CAN 1 SPRAY TOP (15:38)
[2025-05-05 18:22] LABS: Basophils # (Auto) 0.0 Thou/mm3 (0.0-0.2); Basophils % (Auto) 0 % (0-2.5); Eosinophils # (Auto) 0.0 Thou/mm3 (0.0-0.5); Eosinophils % (Auto) 0 % (0-10); Hematocrit 28.9 % (36.0-46.0); Hemoglobin 9.2 g/dL (12.0-16.0); Immature Granulocytes Auto 0.13 Thou/mm3 (0.00-0.00); Lymphocytes # (Auto) 1.7 Thou/mm3 (1.0-4.8); Lymphocytes % (Auto) 9 % (10-50); Mean Corpuscular HGB Conc 31.8 g/dl (31.0-37.0); Mean Corpuscular Hemoglobin 23.2 pg (25.0-35.0); Mean Corpuscular Volume 73 fL (80-100); Monocytes # (Auto) 1.1 Thou/mm3 (0.0-0.8); Monocytes % (Auto) 6 % (0-12); Neutrophils # (Auto) 15.6 Thou/mm3 (1.8-7.7); Neutrophils % (Auto) 84 % (37-80); Nucleated Red Blood Cell # 0.00 Thou/mm3 (0.00-0.00); Nucleated Red Blood Cell % 0 /100 WBC (0); Platelet Count 233 Thou/mm3 (140-440); RDW Standard Deviation 56.5 fL (36.4-46.3); Red Blood Count 3.96 Miln/mm3 (4.00-5.20); White Blood Count 18.6 Thou/mm3 (3.6-11.0)
[2025-05-06 00:19] VITALS: BP 110/68; PULSE 81; RESP 18; TEMP 36.6; O2SAT 98
[2025-05-06] MEDS: IBUPROFEN TAB 400 MG TABLET 800 MG PO ×2 (00:40→13:24)
[2025-05-06 04:27] VITALS: BP 110/70; PULSE 82; RESP 13; TEMP 36.7; O2SAT 98
--- NOTE | 2025-05-06 09:17 | PD.LDDS ---
DS: Providers Provider Date of admission: 05/05/25 02:07 Primary care physician: Physician No Primary/Family Admitting Provider: Christelle Durand CNM Attending Provider on Admission: Christelle Durand CNM Consults: 05/05/25 13:45 Referral Routine Comment: Attending Provider on DC: Christelle Durand CNM Discharging Provider: Christelle Durand CNM Anticipated date of discharge: 05/06/25 DS: Diagnosis Discharge Diagnosis (1) Normal spontaneous vaginal delivery: Status: Acute (2) care following vaginal delivery: Status: Acute (3) Encounter for care of lactating mother: Status: Acute (4) Encounter for induction of labor: Status: Acute Problem List Completed Was Problem List Reviewed/Reconciled?: Yes Summary/Hosp Course Brief History: Soumya Hahn is a 24-year-old patient with a history of seizure disorder and one ectopic , presenting for induction of labor at 39 weeks and 4 days gestation. Her obstetric history includes a 34-week delivery in 2021, an ectopic with left salpingectomy in 2022, and two early losses in 2023 managed with suction and curettage (S&C) and dilation and curettage (D&C) respectively. The patient's current has an estimated due date of May 09, 2025, based on her last menstrual period, which is consistent with a 12-week and 4-day ultrasound. She has been receiving care at [facility]. At 32 weeks and 6 days gestation, she was admitted to the hospital with multiple episodes of severe lower abdominal pain and contractions, accompanied by nausea and vomiting. She was subsequently discharged home. On presentation for induction, the patient's cervical exam revealed 3 cm dilation, 50% effacement, and high station with intact membranes. heart tones showed a baseline of 145 bpm with moderate variability and accelerations, without decelerations. The patient is noted to be Group B streptococcus-negative, requiring no prophylaxis. Obstetric History: - GTPAL: G5 T0 L1 - Current : - Gestational age: 39 weeks and 4 days at admission - Estimated due date: May 09, 2025 - history: - 2023: Early loss, D&C performed - 2023: Spontaneous - 2022: Ectopic , left salpingectomy - 2022: delivery at 34 weeks Medical History: - Seizure disorder Surgical History: - Left salpingectomy in 2022 for ectopic - Suction and evacuation (S&E) in 2023 - Dilation and curettage (D&C) in 2023 for early loss ROS: Gastrointestinal: Positive for nausea and vomiting. 05/05/25: Pt was 7 cm AROM was performed with clear fluids, after 30 minutes pt was complete and one push had an of a viable male infant. delivered in compound presentation with left posterior arm on the check. Left posterior arm delivered first then the anterior shoulder and the body without complications. Infant placed on mother's abdomen, vigorous cry upon delivery. Cord was clamped then cut by FOB. Cord blood obtained. 3-vessel cord noted. Placenta expelled spontaneously and intact. Small intriotus tear, reapaired using a 3.[address] 3 sutures placed. Perineum intact. Excellent hemostasis achieved after a vigorous fundal massage and removal of clots from the posterior fornix. EBL 500. Pt received 1 dose of methergine and 1 dose of TXa and IV pitocin. Sponge and needle count is correct. Mother and baby stable, skin to skin and bonding in LDR. 05/06/25: PPD#1 patient is stable and afebrile. Doing well and . Ambulating to the bathroom without problems voiding with no problems. Passing gas. Denies dizziness shortness of breath. No bowel movement yet. Patient is breast-feeding infant well. Bonding well. Eager to go home. Uterus is nontender fundus firm and minimal lochia. Discharge instructions given. Patient to follow-up with Christelle Durand CNM in 3 weeks . Peripartum Data Delivery Method: Normal Vaginal Delivery Episiotomy Description: None complications: none 1: Gender: Male Disposition of : home Status at Discharge Cognitive/behavioral status at discharge: Alert and oriented x 3 Functional status at discharge: independent ambulation Overall status at discharge: patient is progressing back to baseline Time Spent with Patient Time attestation: Total time spent providing and/or coordinating discharge services: Time spent: Greater than 30 minutes Exam Vital Signs Temp Pulse Resp BP Pulse Ox O2 Del Method 97.8 F 81 18 110/68 98 Room Air 05/06/25 00:19 05/06/25 00:19 05/06/25 00:19 05/06/25 00:19 05/06/25 00:19 05/06/25 00:19 Constitutional Constitutional: no acute distress Routine HEENT Exam Head: Present normocephalic and atraumatic Eye: Present EOMI, PERRL and normal accommodation ENT: Present mucous membranes moist Routine Neck Exam Neck: Present supple, full ROM and trachea midline Routine Respiratory Exam Respiratory: Present chest non-tender, lungs clear, normal breath sounds and no resp distress Routine Cardiovascular Exam Cardiovascular: Present RRR Routine Abdominal Exam Abdominal: Present soft and normoactive bowel sounds; Absent tenderness or distended Comments: Uterus nontender Fundus firm Routine Exam External: Present normal urethra appearance Comments: minimal lochai Routine Extremities Exam Extremities: Present full ROM, pulses intact and normal capillary refill; Absent calf tenderness or tenderness Routine Back/Spine/Pelvis Exam Back/Spine: Present full ROM Routine Skin Exam Skin: Present intact, dry and warm Routine Neurological Exam Neurological: Present alert, oriented X3 and CN II-XII intact Routine Psychiatric Exam Psychiatric: Present normal affect and normal thought process Discharge Plan Plan Patient Disposition: HOME (Self Care) Patient condition on transfer: Stable Prescriptions/Referrals Prescriptions/Med Rec: New docusate sodium [Colace] 100 mg capsule 100 mg PO BID Qty: 60 0RF ibuprofen 600 mg tablet 600 mg PO Q6H PRN (Reason: pain) Qty: 90 0RF lanolin 50 % ointment 1 applic topical TID PRN (Reason: skin irritation) Qty: 15 0RF Continued omeprazole 20 mg capsule,delayed release(DR/EC) 20 mg PO QDAY Qty: 30 0RF ferrous sulfate 325 mg (65 mg iron) tablet 325 mg PO .qod Vitamin 27 mg iron- 800 mcg tablet 1 tab PO .q day Patient Comments: TAKE 1 TABLET BY MOUTH EVERY DAY Discontinued ibuprofen 800 mg tablet 800 mg PO Q8H Qty: 21 0RF folic acid 1 mg tablet 1 mg PO QDAY Patient Comments: TAKE 1 TABLET BY MOUTH EVERY DAY Referrals: No Primary/Family,Physician [Primary Care Provider] - Patient/Caregiver Discharge Instructions Meds to Beds: No Discharge Activity: activity as tolerated Other Discharge Activity Instructions:: Follow-up with Christelle Durand CNM in 3 weeks Education Materials: After a Vaginal , After Delivery [place] Concerns, : Caring for Yourself Print Language: Polish Stand Alone Forms: [facility] Award Info., Patient Portal Info Letter Discharge Order Discharge Orders: Discharge (Routine); Ordered 05/06/25 Ordered By: Christelle Durand Planned Discharge Date 05/06/25
[2025-05-06 09:45] VITALS: BP 115/75; PULSE 79; RESP 20; TEMP 36.4; O2SAT 99
--- NOTE | 2025-05-06 11:25 | PC.SS ---
There was a referral placed for patient testing positive for opiates. Per Walker, patient was provided with morphine at the ED, then providers completed a UDS. Patient was negative on admission to deliver son. SW has disregard consult due to no base for substance and no other social issues.
== END 2025-05-06 13:48 | disposition home or self-care (01) | DRG 560 ==
LOC: S4SX 14:09 → S4NX 15:39
PROVIDERS: Obstetrics & Gynecology; Admitting Provider Nurse Practitioner Women's Health; Visit Provider Nurse Practitioner Women's Health
DX: O99.824 Streptococcus B carrier state complicating childbirth (principal); O99.354 Diseases of the nervous system complicating childbirth; G40.909 Epilepsy, unspecified, not intractable, without status epilepticus; O32.6XX0 Maternal care for compound presentation, not applicable or unspecified; Z37.0 Single live birth; Z3A.39 39 weeks gestation of pregnancy
CPT/HCPCS: 36415; 59025; 59409; 76805; 80307; 85025; 86780; 86850; 86900; 86901; 86923; 94762; J2210; J2590; J2795; J3010; J3490; J7120; A9270

== ENCOUNTER 2025-05-08 00:56 | Emergency (ER) | payer MEDICAID, SELFPAY ==
[2025-05-08 00:58] VITALS: BMI 34.3
[2025-05-08 01:16] VITALS: BP 126/80; PULSE 89; RESP 22; TEMP 36.6; O2SAT 98
--- NOTE | 2025-05-08 01:21 | XR_ITS ---
Examination: Pelvic ultrasound, transabdominal, complete Technique: Transabdominal ultrasound of the pelvis performed using grayscale imaging Date and time of exam: May 08, 2025 0152 hours INDICATIONS: Right lower abdominal pain beginning 2 days ago, May 05, 2025 FINDINGS: Uterus 16.8 cm endometrial stripe 0.9 cm No definite retained products of conception. Right ovary 5.4 cm arterial flow Left ovary 3.0 cm arterial flow IMPRESSION: enlarged uterus. No definite retained product of conception
--- NOTE | 2025-05-08 01:21 | XR_ITS ---
Examination: CT abdomen and pelvis without contrast. Coronal 3-D reconstructions. Sagittal 2-D reconstructions. Date and time of exam:May 08, 2025 0256 hours INDICATIONS: Lower abdominal pain today, May 05, 2025 CTDI: vol (mGy): 12.4 DLP: (mGycm): 711 Technique: Axial images of the abdomen have been obtained, 3 mm slice thickness Intravenous contrast material has not been administered. Low dose protocols were performed. One or more of the following dose reduction techniques were used; automated exposure control, adjustment of the mA and/or KV according to patient size, use of iterative reconstruction technique. Findings: No focal liver or splenic lesions Absent gallbladder No pancreatic mass. No renal or ureteral calculi are Normal appendix enlarged uterus with areas of hyperdense endometrial stripe Mildly prominent right ovary There is inflammatory change about the urinary bladder Osseous structures are intact IMPRESSION: Recommend pelvic sonography to exclude retained parts of conception Cystitis pattern
[2025-05-08 01:39] LABS: Basophils # (Auto) 0.0 Thou/mm3 (0.0-0.2); Basophils % (Auto) 0 % (0-2.5); Eosinophils # (Auto) 0.2 Thou/mm3 (0.0-0.5); Eosinophils % (Auto) 2 % (0-10); Hematocrit 29.1 % (36.0-46.0); Hemoglobin 9.2 g/dL (12.0-16.0); Immature Granulocytes Auto 0.14 Thou/mm3 (0.00-0.00); Lymphocytes # (Auto) 3.1 Thou/mm3 (1.0-4.8); Lymphocytes % (Auto) 28 % (10-50); Mean Corpuscular HGB Conc 31.6 g/dl (31.0-37.0); Mean Corpuscular Hemoglobin 23.4 pg (25.0-35.0); Mean Corpuscular Volume 74 fL (80-100); Monocytes # (Auto) 0.6 Thou/mm3 (0.0-0.8); Monocytes % (Auto) 6 % (0-12); Neutrophils # (Auto) 7.0 Thou/mm3 (1.8-7.7); Neutrophils % (Auto) 63 % (37-80); Nucleated Red Blood Cell # 0.00 Thou/mm3 (0.00-0.00); Nucleated Red Blood Cell % 0 /100 WBC (0); Platelet Count 342 Thou/mm3 (140-440); RDW Standard Deviation 56.6 fL (36.4-46.3); Red Blood Count 3.93 Miln/mm3 (4.00-5.20); White Blood Count 11.0 Thou/mm3 (3.6-11.0)
[2025-05-08 01:55] LABS: Collection Type, Urine Clean Catch
[2025-05-08 01:58] LABS: HCG Qualitative,Urine Positive
[2025-05-08 01:59] LABS: Bilirubin,Urine Negative (Negative); Blood,Urine 2+ (Negative); Clarity,Urine Clear (Clear/Hazy); Color,Urine Lt-Yellow (Lt Yel-Yel); Glucose, Urine Negative (Negative); Ketones,Urine Negative (Negative); Leukocyte Esterase,Urine Positive (Negative); Nitrite,Urine Negative (Negative); PH,Urine 7.0 (5.0-7.0); Protein,Urine Negative (Neg - Trace); RBC,Urine 29 /hpf (0-3); Specific Gravity,Urine 1.022 (1.001-1.035); Squamous Epithelial Cell,Urine 1 /hpf (0-5); Urobilinogen,Urine Negative mg/dL (0.0-1.0); WBC,Urine 7 /hpf (0-5)
[2025-05-08 02:10] LABS: Alanine Aminotransferase 10 U/L (10-49); Albumin, Serum 3.6 gm/dL (3.5-5.0); Albumin/Globulin Ratio 1.6 (1.2-2.2); Alkaline Phosphatase 142 U/L (46-116); Anion Gap 8 (7-16); Aspartate Amino Transferase 16 U/L (0-34); BUN/Creatinine Ratio 9 Ratio (12-20); Bilirubin,Total 0.3 mg/dL (0.3-1.2); Blood Urea Nitrogen 6 mg/dL (9-23); Calcium 8.8 mg/dL (8.3-10.6); Calcium (Corrected) 9.1 mg/dL (8.5-10.1); Carbon Dioxide 23.8 mMol/L (20.0-31.0); Chloride 110 mMol/L (98-107); Creatinine (Component) 0.7 mg/dL (0.6-1.3); Estimated Creatinine Clearance 136.4 mL/min (>60); Globulin 2.3 gm/dL (2.3-3.5); Glucose 84 mg/dL (74-106); Lipase 26 U/L (12-53); Osmolality,Calculated 279 (275-295); Potassium 4.1 mMol/L (3.4-5.1); Sodium 142 mMol/L (136-145); Total Protein 5.9 gm/dL (5.7-8.2); eGFR > 60 See Note
--- NOTE | 2025-05-08 03:08 | PRELIM_ITS ---
Pelvic ultrasound (transabdominal) with Doppler . May 08, 2025 at 0152 hours Clinical history: Retention placenta. Findings: The uterus is enlarged, measuring 16.8 x 8.4 x 10.2 cm and appears heterogeneous in echotexture. The endometrium is unremarkable and measures 0.9 cm. The right ovary measures 5.4 x 2.8 x 4.7 cm. The left ovary measures 3 x 1.5 x 2.8 cm. Both ovaries demonstrate color flow and spectral waveforms on Doppler evaluation. There is no adnexal mass. There is no free fluid on the submitted images. Impression: Enlarged and heterogeneous echotexture of the uterus. Endometrium is unremarkable and measures 0.9 cm. Ovaries unremarkable. Report Electronically Signed By: Mark Alarcon 05/08/2025 3:07:51 AM [EST]
--- NOTE | 2025-05-08 04:33 | EDNOTE_ITS ---
ED Abdominal Pain RME/HPI General Chief Complaint: Abdominal Pain Stated complaint: LEFT LOWER ABD PAIN Time seen by provider: 05/08/25 00:57 Arrival date/time: 05/08/25 00:56 This is a case of 24-year-old female with no medical history came in in the emergency room due to left lower quadrant pain associated with nausea vomiting today denies any constipation diarrhea denies any urinary symptoms denies any painful urination patient still having vaginal bleeding patient is status post vaginal delivery last Thursday with no complication Limitations: no limitations and other Related Data Home Medications ?Medication ?Instructions ?Recorded ?Confirmed ferrous sulfate 325 mg (65 mg 325 mg PO .qod 02/12/25 04/12/25 iron) tablet vits no.130-ferrous fum 1 tab PO .q day 02/1204/12/25 27 mg iron-folic acid 800 mcg tablet ( Vitamin) Previous Rx's ?Medication ?Instructions ?Recorded omeprazole 20 mg capsule,delayed 20 mg PO QDAY #30 cap s 04/12/25 release docusate sodium 100 mg capsule 100 mg PO BID #60 caps 05/06/25 (Colace) ibuprofen 600 mg tablet 600 mg PO Q6H PRN pain #90 t abs 05/06/25 lanolin 50 % topical ointment 1 applic topical TID PRN skin 05/06/25 irritation #15 tubes cephalexin 500 mg capsule 500 mg PO Q6HR 10 days #40 c aps 05/08/25 ondansetron 4 mg disintegrating 4 mg PO Q8H PRN nausea and 05/08/25 tablet vomiting #20 tabs Allergies Allergy/AdvReac Type Severity Reaction Status Date / Time pineapple Allergy Severe HIVES, Verified 05/08/25 00:56 DIFF. BREATHING Review of Systems Review of Systems Systems Reviewed: All systems reviewed, normal except as documented Constitutional Constitutional: Reports system reviewed and no additional complaints, except as documented, Reports as per HPI, Denies chills and Denies fever(s) Cardiovascular Cardiovascular: Reports system reviewed and no additional complaints, except as documented, Denies chest pain and Denies dyspnea Respiratory Respiratory: Reports system reviewed and no additional complaints, except as documented, Reports as per HPI, Denies cough and Denies dyspnea Gastrointestinal Gastrointestinal: Reports system reviewed and no additional complaints, except as documented, Reports as per HPI, Reports abdominal pain, Denies loose stools, Reports nausea and Reports vomiting Musculoskeletal Musculoskeletal: Reports system reviewed and no additional complaints, except as documented and Reports as per HPI Neurologic Neurologic: Reports system reviewed and no additional complaints, except as documented and Reports as per HPI Past Medical History Past Medical History NEUROLOGIC: Positive Neurological Disorders and Seizures CARDIAC: Negative Cardiac Disorders, Congestive Heart Failure, Edema, Cellulitis or Varicose Veins RESPIRATORY: Negative Chronic Obstructive Pulmonary Disease (COPD), Asthma, Tuberculosis, Pulmonary Embolism or Sleep Apnea GASTROINTESTINAL: Positive Gastrointestinal Disorders and Gall Bladder Disease (CHOLECYSTECTOMY); Negative Hepatitis GENITOURINARY: Negative Genitourinary Disorders or Renal Disease REPRODUCTIVE: Positive Breast Cancer and Previous Pregnancies MUSCULOSKELETAL: Negative Musculoskeletal Disorders ENT: Positive Deafness ENDOCRINE: Negative Endocrine Disorders, Diabetes Mellitus Type 1 or Diabetes Mellitus Type 2 HEMATOLOGIC: Positive Blood Disorders and Anemia; Negative Sickle Cell Disease PSYCHO/SOCIAL: Positive Anxiety OTHER HISTORY: Positive Blood Transfusions and Breast Cancer; Negative Hospitalization, Autoimmune Disease, Down Syndrome, Developmental Delay, Shingles, Falls, Blood Transfusion Reaction, Anesthesia Reactions, Organ Transplant, Chemotherapy, Radiation Therapy, Hyperbaric Therapy, MRSA, VRSA, Vancomycin-Resistant Enterococci, Human Immunodeficiency Virus (HIV), Chicken Pox, Measles, Mumps, Rubella ([place]ian Measles), Pertussis, Clostridium Difficile or Cancer Family History FAMILY HISTORY: Positive Family Cardiac Disorders and Family Cancer; Negative Family Psychiatric Problems, Family Respiratory Disorders, Family Gastrointestinal Problems, Family Surgery or Family Anesthesia Reaction Surgical History SURGICAL: Positive Tympanostomy Tube and Tonsillectomy; Negative Cardiac Surgery, Pacemaker, Section or Organ Transplant Social History SMOKING STATUS: Never smoker SECOND HAND EXPOSURE: No SUBSTANCE USE: does not use ED Exam General Limitations: Present no limitations and other General appearance: Present alert, in no apparent distress and other (Patient is awake alert oriented not in distress nontoxic looking well-hydrated well- nourished) Head Head exam: Present atraumatic, normocephalic and normal inspection Eye Eye exam: Present normal appearance, PERRL and EOMI ENT ENT exam: Present normal exam, normal oropharynx and mucous membranes moist Neck Neck exam: Present normal inspection, full ROM and trachea midline Chest Chest inspection: Present normal inspection and symmetric chest wall rise Respiratory Respiratory exam: Present normal lung sounds bilaterally; Absent respiratory distress, wheezes, stridor, accessory muscle use or prolonged expiratory phase Cardiovascular Cardiovascular exam: Present regular rate, normal rhythm and normal heart sounds; Absent bradycardia, tachycardia, irregular rhythm, systolic murmur or diastolic murmur Abdominal Exam Abdominal exam: Present soft, tenderness (Tenderness on the left lower quadrant no CVA tenderness) and normal bowel sounds; Absent distention, guarding, rebound, rigidity, diminished bowel sounds, hyperactive bowel sounds, hypoactive bowel sounds, obturator sign, Daniels's sign, Rovsing's sign, tenderness at McBurney's Point or hernia Abdominal tenderness: Present LLQ and mild Extremities Exam Extremities exam: Present normal inspection and full ROM Back Exam Back exam: Present normal inspection and full ROM Neurological Exam Neurological exam: Present alert, oriented X3, CN II-XII intact, normal gait and reflexes normal; Absent motor sensory deficit Psychiatric Psychiatric exam: Present normal affect and normal mood Skin Skin exam: Present warm, dry, intact and normal color Course Quality Measures none Orders Category Date Time Status CT abdomen pelvis wo con Stat Exams 05/08/25 01:21 Taken US pelvic complete Stat Exams 05/08/25 01:21 Taken CBC Stat Lab 05/08/25 01:30 Completed Comprehensive Metabolic Panel Stat Lab 05/08/25 01:30 Completed HCG Qualitative,Urine Stat Lab 05/08/25 01:40 Completed Lipase Stat Lab 05/08/25 01:30 Completed Urinalysis Stat Lab 05/08/25 01:40 Completed Vital Signs Vital signs: Vital Signs Temperature 97.9 F 05/08/25 01:16 Pulse Rate 89 05/08/25 01:16 Respiratory Rate 22 H 05/08/25 01:16 Blood Pressure 126/80 05/08/25 01:16 Pulse Oximetry (%) 98 05/08/25 01:16 Oxygen Delivery Method Room Air 05/08/25 01:16 Patient is afebrile not tachycardic not tachypneic BP stable not hypoxic oxygen saturation is 98% in room air Abdominal Pain MDM MDM Narrative MDM Narrative:: This is a case of 24-year-old female with no medical history came in in the emergency room due to left lower quadrant pain associated with nausea vomiting today denies any constipation diarrhea denies any urinary symptoms denies any painful urination patient still having vaginal bleeding patient is status post vaginal delivery last Thursday with no complication physical examination patient is awake alert oriented not in distress nontoxic looking well-hydrated well- nourished patient abdominal exam is benign nonsurgical mild tenderness left lower quadrant soft normal active bowel sounds no guarding no rebound no rigidity negative psoas negative straight or negative Rovsing's negative McBurney's negative Daniels sign negative CVA tenderness blood test showed no leukocytosis patient is mild anemia hemoglobin is 9.2 and hematocrit is 29.1 patient is status post vaginal delivery platelet is normal no electrolyte imbalance kidney and liver function is normal lipase is normal urinalysis shows WBC urine suggestive of urinary tract infection pelvic ultrasound is normal CT scan pending result at this point patient request to be discharge discussed with the patient that the CT scan result is not available yet but still persistent to be discharge patient refused to stay and wait for the result of the CT scan patient decided to leave AGAINST MEDICAL ADVICE I have assessed the patient ability to make an informed decision and feeling that the patient has been capacity to comprehend information regarding the current medical condition and appreciates the impact of the disease or condition and the consequences of for use action for the treatment including foregoing treatment the patient possess the ability to evaluate all treatment option compared the risk and benefits of his choice in a consistent manner over time and is able to make rational choices I have explained to the patient further testing treatment and evaluation I would like to perform during the current emergency department visit as well as the possible alternatives that could be accomplished in a timely manner I have outlined the possible risks of foregoing an of this intervention and the patient understand and acknowledge the decision to leave may result undesirable consequences suggested permanent disability and a loss of current lifestyle even though leaving AMA is not ideal I have instructed the patient to follow any discharge instruction given take any medication prescribed and resume care as soon as possible with another provider conversation was witnessed by another member of the emergency department and we clearly communicate that the patient is welcome to return at any time to continue care at our facility Addendum patient already left when the radiology called regarding the preliminary result of the CT scan I discussed it with Dr. Chan I was told that she will take care of the result of the CT scan and will pass to the next shift and to wait for the on ride to have the final reading of the CT scan before calling the patient back Patient data External records reviewed:: [facility] previous records Clinical information provided by:: patient Social determinants that could affect healthcare access:: none Patient has the following chronic illnesses:: None How is presenting disease/condition affected by chronic disease/condition?: no chronic disease Evaluation data The following diagnostics were reviewed and interpreted by me:: lab results and radiology exam(s) Lab and/or radiology exams considered but not ordered:: Reviewed Interpretation Summary: Reviewed Medications / Prescriptions Medications or Prescriptions considered but not ordered:: Given Medication administrations:: Given Consultations Consultation(s) initiated? (list below): No Diagnosis Differential diagnosis abdominal pain: abdominal pain, acute appendicitis, calculus of kidney, diverticulitis and small bowel obstruction Most likely diagnosis given after review of the tests above:: Undetermined patient signed AMA Admission Indicated Admission indicated?: indicated (Undetermined patient AMA) Explain why admission is indicated or not indicated:: Undetermined patient signed AMA Admission Request Was there a request for admission?: No Disposition Plan Disposition Plan: other (specify) (AMA) Discharge Plan Plan Patient Disposition: Left Against Medical Advice Patient condition on transfer: Stable Prescriptions/Referrals Prescriptions/Med Rec: New cephalexin 500 mg capsule 500 mg PO Q6HR 10 Days Qty: 40 0RF ondansetron 4 mg tablet,disintegrating 4 mg PO Q8H PRN (Reason: nausea and vomiting) Qty: 20 0RF No Action omeprazole 20 mg capsule,delayed release(DR/EC) 20 mg PO QDAY Qty: 30 0RF docusate sodium [Colace] 100 mg capsule 100 mg PO BID Qty: 60 0RF ibuprofen 600 mg tablet 600 mg PO Q6H PRN (Reason: pain) Qty: 90 0RF lanolin 50 % ointment 1 applic topical TID PRN (Reason: skin irritation) Qty: 15 0RF ferrous sulfate 325 mg (65 mg iron) tablet 325 mg PO .qod Vitamin 27 mg iron- 800 mcg tablet 1 tab PO .q day Patient Comments: TAKE 1 TABLET BY MOUTH EVERY DAY Referrals: Blaze Benítez MD [Primary Care Provider] - In 1 week Problem List Clinical Impression: Abdominal pain, Abnormal vaginal bleeding, Urinary tract infection, Left against medical advice Patient/Caregiver Discharge Instructions Education Materials: Abdominal Pain, Understanding Uterine Bleeding, Urinary Tract Infections in Women Additional Instructions: Follow-up with your primary care physician today for reevaluation it is important to see your OB edger tailer today for reevaluation of your abnormal vaginal bleeding and abdominal pain for any worsening symptoms or any emergent concern return immediately here in the emergency room or call 911 take your medication finish the course of antibiotic increase water intake keep hydrated Print Language: Nicaraguan PA/ENGINEER AND GEOLOGIST Supervising Physician PA/ENGINEER AND GEOLOGIST Supervising Physician: dr durán
--- NOTE | 2025-05-08 04:44 | PRELIM_ITS ---
CT scan of the abdomen and pelvis without intravenous contrast (axial sections with sagittal and coronal reformats) May 08, 2025 0256 hours Clinical History: Abdominal pain. Correlated with prior study pelvic ultrasound performed on the same date. Findings: The lung bases are clear. The liver, pancreas, spleen, kidneys and adrenals are unremarkable on this noncontrast study. The gallbladder is surgically absent. No evidence of bowel obstruction. The appendix is within normal limits (images [id number]). A moderate amount of fecal material is present in the colon. There is no mesenteric or retroperitoneal adenopathy. The urinary bladder is incompletely distended at the time of the examination with perivesical fat stranding. The uterus is enlarged likely related to status. There are hyperdensities in the uterine endometrium. There is asymmetric enlargement of the right ovary. There are hyperdensities in the left gonadal vein. There is no free fluid or free air. There is non-specific fat stranding around the umbilicus. The osseous structures are unremarkable. Impression: 1. Enlarged heterogeneous uterus likely related to status. Hyperdensities in the uterine endometrium which were represent blood clots versus retained products of conception. 2. Asymmetric prominence of the right ovary. Hyperdensities in the left gonadal vein concerning for thrombosis. 3. Non-specific fat stranding around the incompletely distended urinary bladder, likely related to recent status. Recommend clinical and laboratory correlation to rule out superimposed cystitis. 4. No evidence of bowel obstruction or free air. Discussion Details: Results verbally communicated to : Maria Fernanda Arreola, Nurse Practitioner at 04:38 AM 05/08/2025 Report Electronically Signed By: Colin Beltrán 05/08/2025 4:44:06 AM [EST]
== END 2025-05-08 04:29 | disposition left against medical advice (07) ==
PROVIDERS: Nurse Practitioner Family; Emergency Provider Emergency Medicine; PCP Family Medicine
DX: O90.89 Other complications of the puerperium, not elsewhere classified (principal); N39.0 Urinary tract infection, site not specified; Z53.29 Procedure and treatment not carried out because of patient's decision for other reasons; O86.20 Urinary tract infection following delivery, unspecified
CPT/HCPCS: 36415; 74176; 76856; 80053; 81001; 81025; 83690; 85025; 99283

== ENCOUNTER 2025-06-15 12:14 | Emergency (ER) | payer MEDICAID, SELFPAY ==
[2025-06-15 12:14] VITALS: BMI 33.1
[2025-06-15 12:55] VITALS: BP 112/60; PULSE 67; RESP 16; TEMP 37; O2SAT 96
--- NOTE | 2025-06-15 12:59 | XR_ITS ---
Examination: Pelvic ultrasound, transabdominal, complete Technique: Transabdominal ultrasound of the pelvis performed using grayscale imaging Date and time of exam: June 15, 2025 1326 hours INDICATIONS: Vaginal bleeding beginning yesterday, May 05, 2025 FINDINGS: Uterus 7.8 cm endometrial stripe 1.7 cm No uterine mass or intrauterine gestation, no retained process of conception Right ovary 3.1 cm arterial flow Left ovary 3.0 cm arterial flow IMPRESSION: Negative study
--- NOTE | 2025-06-15 13:00 | PD.EDRME ---
Rapid Medical Screening Exam RME Arrival date/time: 06/15/25 12:14 25-year-old female with history of anemia presents to the emerged part today stating that she is approximately 5 weeks has vaginal bleeding Chief Complaint: Vaginal Bleeding Vital signs: Vital Signs Temperature 98.6 F 06/15/25 12:55 Pulse Rate 67 06/15/25 12:55 Respiratory Rate 16 06/15/25 12:55 Blood Pressure 112/60 06/15/25 12:55 Pulse Oximetry (%) 96 06/15/25 12:55 Oxygen Delivery Method Room Air 06/15/25 12:55
[2025-06-15 14:23] LABS: Basophils # (Auto) 0.0 Thou/mm3 (0.0-0.2); Basophils % (Auto) 0 % (0-2.5); Eosinophils # (Auto) 0.1 Thou/mm3 (0.0-0.5); Eosinophils % (Auto) 2 % (0-10); Hematocrit 39.6 % (36.0-46.0); Hemoglobin 12.0 g/dL (12.0-16.0); Immature Granulocytes Auto 0.01 Thou/mm3 (0.00-0.00); Lymphocytes # (Auto) 2.5 Thou/mm3 (1.0-4.8); Lymphocytes % (Auto) 41 % (10-50); Mean Corpuscular HGB Conc 30.3 g/dl (31.0-37.0); Mean Corpuscular Hemoglobin 24.0 pg (25.0-35.0); Mean Corpuscular Volume 79 fL (80-100); Monocytes # (Auto) 0.3 Thou/mm3 (0.0-0.8); Monocytes % (Auto) 5 % (0-12); Neutrophils # (Auto) 3.1 Thou/mm3 (1.8-7.7); Neutrophils % (Auto) 51 % (37-80); Nucleated Red Blood Cell # 0.00 Thou/mm3 (0.00-0.00); Nucleated Red Blood Cell % 0 /100 WBC (0); Platelet Count 269 Thou/mm3 (140-440); RDW Standard Deviation 47.5 fL (36.4-46.3); Red Blood Count 4.99 Miln/mm3 (4.00-5.20); White Blood Count 6.0 Thou/mm3 (3.6-11.0)
[2025-06-15 14:37] LABS: INR 1.1 (0.9-1.3); Partial Thromboplastin Time 25.8 Seconds (22.0-36.0); Prothrombin Time 11.6 Seconds (9.0-12.2)
[2025-06-15 14:45] LABS: Alanine Aminotransferase 119 U/L (10-49); Albumin, Serum 4.8 gm/dL (3.5-5.0); Albumin/Globulin Ratio 2.4 (1.2-2.2); Alkaline Phosphatase 89 U/L (46-116); Anion Gap 7 (7-16); Aspartate Amino Transferase 66 U/L (0-34); BUN/Creatinine Ratio 11 Ratio (12-20); Bilirubin,Total 0.4 mg/dL (0.3-1.2); Blood Urea Nitrogen 9 mg/dL (9-23); Calcium 9.9 mg/dL (8.3-10.6); Calcium (Corrected) 9.9 mg/dL (8.5-10.1); Carbon Dioxide 26.2 mMol/L (20.0-31.0); Chloride 108 mMol/L (98-107); Creatinine (Component) 0.8 mg/dL (0.6-1.3); Estimated Creatinine Clearance 116.1 mL/min (>60); Globulin 2.0 gm/dL (2.3-3.5); Glucose 75 mg/dL (74-106); Osmolality,Calculated 278 (275-295); Potassium 4.3 mMol/L (3.4-5.1); Sodium 141 mMol/L (136-145); Total Protein 6.8 gm/dL (5.7-8.2); eGFR > 60 See Note
[2025-06-15 17:06] LABS: Hematocrit 39.5 % (36.0-46.0); Hemoglobin 11.8 g/dL (12.0-16.0)
--- NOTE | 2025-06-15 17:12 | EDNOTE_ITS ---
ED OB Contraction Preg RMI/HPI General Chief complaint: Vaginal Bleeding Stated complaint: VAG BLEEDING 5WK Time Seen by Provider: 06/15/25 13:05 Arrival date/time: 06/15/25 12:14 Mode of arrival: ambulatory Limitations: no limitations RME / HPI RME / HPI Narrative: 06/15/25 12:14 25-year-old female with history of anemia presents to the emerged part today stating that she is approximately 5 weeks has vaginal bleeding. Denies fevers chills nausea vomiting. Denies drugs alcohol smoking. Related Data Home Medications ?Medication ?Instructions ?Recorded ?Confirmed ferrous sulfate 325 mg (65 mg 325 mg PO .qod 02/12/25 04/12/25 iron) tablet vits no.130-ferrous fum 1 tab PO .q day 02/1204/12/25 27 mg iron-folic acid 800 mcg tablet ( Vitamin) Previous Rx's ?Medication ?Instructions ?Recorded omeprazole 20 mg capsule,delayed 20 mg PO QDAY #30 cap s 04/12/25 release docusate sodium 100 mg capsule 100 mg PO BID #60 caps 05/06/25 (Colace) ibuprofen 600 mg tablet 600 mg PO Q6H PRN pain #90 t abs 05/06/25 lanolin 50 % topical ointment 1 applic topical TID PRN skin 05/06/25 irritation #15 tubes ondansetron 4 mg disintegrating 4 mg PO Q8H PRN nausea and 05/08/25 tablet vomiting #20 tabs Allergies Allergy/AdvReac Type Severity Reaction Status Date / Time pineapple Allergy Severe HIVES, Verified 06/15/25 12:18 DIFF. BREATHING ED Exam General Limitations: Present no limitations Eye Eye exam: Present normal appearance and EOMI ENT ENT exam: Present normal exam and normal oropharynx Neck Neck exam: Present normal inspection Chest Chest inspection: Present normal inspection Respiratory Respiratory exam: Present normal lung sounds bilaterally; Absent respiratory distress Cardiovascular Cardiovascular exam: Present bradycardia; Absent regular rate or normal rhythm Abdominal Exam Abdominal exam: Absent soft, distention or tenderness Extremities Exam Extremities exam: Present normal inspection Back Exam Back exam: Present normal inspection Neurological Exam Neurological exam: Present alert, oriented X3, CN II-XII intact and normal gait Psychiatric Psychiatric exam: Present normal affect Skin Skin exam: Present warm, dry and intact Course Quality Measures none Orders Category Date Time Status US pelvic complete Stat Exams 06/15/25 12:59 Completed Antibody Identification Stat Lab 06/15/25 14:06 Completed CBC Stat Lab 06/15/25 14:06 Completed Comprehensive Metabolic Panel Stat Lab 06/15/25 14:06 Completed Hemoglobin and Hematocrit Stat Lab 06/15/25 16:30 Completed Partial Thromboplastin Time Stat Lab 06/15/25 14:06 Completed Prothrombin Time with INR Stat Lab 06/15/25 14:06 Completed Type and Screen Stat Lab 06/15/25 14:06 Completed Vital Signs Vital signs: Vital Signs Temperature 98.6 F 06/15/25 12:55 Pulse Rate 67 06/15/25 12:55 Respiratory Rate 16 06/15/25 12:55 Blood Pressure 112/60 06/15/25 12:55 Pulse Oximetry (%) 96 06/15/25 12:55 Oxygen Delivery Method Room Air 06/15/25 12:55 Vaginal Bleeding MDM Narrative MDM Narrative: Patient is a 25-year-old female is in the emergency room and concerns for abnormal vaginal bleeding. Patient was evaluated by prior provider. Patient is approximately 5 weeks , has a history of anemia. Her provider ordered labs and ultrasound. Exam and vital signs as listed Labs without leukocytosis, patient hemoglobin 12 on initial assessment then down trended to 11.8 on repeat. Microcytic. Platelets normal. No significant acute electrolyte abnormalities, patient with AST 66, ALT 119, alk phos normal, patient blood type is O+. Pelvic ultrasound with Uterus 7.8 cm endometrial stripe 1.7 cm, No uterine mass or intrauterine gestation, no retained process of conception, patient has flow in both ovaries. Went to reevaluate patient however she eloped from the emergency department. Patient data External records reviewed:: [facility] previous records Clinical information provided by:: patient Social determinants that could affect healthcare access:: none Patient has the following chronic illnesses:: None How is presenting disease/condition affected by chronic disease/condition?: uneffected by Evaluation data The following diagnostics were reviewed and interpreted by me:: lab results and radiology exam(s) Lab and/or radiology exams considered but not ordered:: None Interpretation Summary: See [facility] Medications / Prescriptions Medications or Prescriptions considered but not ordered:: None Medication administrations:: None Consultations Consultation(s) initiated? (list below): No Diagnosis Vaginal Bleeding Differential Diagnosis: other Most likely diagnosis given after review of the tests above:: Abnormal vaginal bleeding Admission Indicated Admission indicated?: not indicated Admission Request Was there a request for admission?: No Disposition Plan Disposition Plan: other (specify) (Eloped) Discharge Plan Plan Patient Disposition: Elopement Prescriptions/Referrals Prescriptions/Med Rec: No Action omeprazole 20 mg capsule,delayed release(DR/EC) 20 mg PO QDAY Qty: 30 0RF docusate sodium [Colace] 100 mg capsule 100 mg PO BID Qty: 60 0RF ibuprofen 600 mg tablet 600 mg PO Q6H PRN (Reason: pain) Qty: 90 0RF lanolin 50 % ointment 1 applic topical TID PRN (Reason: skin irritation) Qty: 15 0RF ferrous sulfate 325 mg (65 mg iron) tablet 325 mg PO .qod Vitamin 27 mg iron- 800 mcg tablet 1 tab PO .q day Patient Comments: TAKE 1 TABLET BY MOUTH EVERY DAY ondansetron 4 mg tablet,disintegrating 4 mg PO Q8H PRN (Reason: nausea and vomiting) Qty: 20 0RF Referrals: No Primary/Family,Physician [Primary Care Provider] - In 1 week Problem List Clinical Impression: care following vaginal delivery, Abnormal vaginal bleeding Patient/Caregiver Discharge Instructions Education Materials: ED Dysfunctional Uterine Bleeding Additional Instructions: Please follow-up with your [facility] sewer within the next 1 to 2 days. Return immediately if you feel lightheaded, shortness of breath, worsening bleeding or any other symptoms of concern. Print Language: Greenlandic Stand Alone Forms: [employer] [facility] Info., Patient Portal Info Letter
--- NOTE | 2025-06-15 17:28 | PD.EDVAGBL ---
ED OB Contraction Preg RMI/HPI General Chief complaint: Vaginal Bleeding Stated complaint: VAG BLEEDING 5WK Time Seen by Provider: 06/15/25 13:05 Arrival date/time: 06/15/25 12:14 Limitations: no limitations RME / HPI RME / HPI Narrative: 06/15/25 12:14 25-year-old female with history of anemia presents to the emerged part today stating that she is approximately [address] GEE MAIN ED EVALUATION: 25-year-old female, with history of 3 miscarriages, presents to the Emergency Department with vaginal bleeding since last night. She reports soaking through approximately seven full pads. She delivered vaginally five weeks ago and had some bleeding initially, which had resolved until this new episode began. She was but stopped approximately one and a half weeks ago. Past medical history is notable for anemia, currently managed with iron supplementation, and a history of cholecystectomy. No known drug allergies. Blood type is O positive. Related Data Home Medications ?Medication ?Instructions ?Recorded ?Confirmed ferrous sulfate 325 mg (65 mg 325 mg PO .qod 02/12/25 04/12/25 iron) tablet vits no.130-ferrous fum 1 tab PO .q day 02/12/25 04/12/25 27 mg iron-folic acid 800 mcg tablet ( Vitamin) Previous Rx's ?Medication ?Instructions ?Recorded omeprazole 20 mg capsule,delayed 20 mg PO QDAY #30 caps 04/12/25 release docusate sodium 100 mg capsule 100 mg PO BID #60 caps 05/06/25 (Colace) ibuprofen 600 mg tablet 600 mg PO Q6H PRN pain #90 tabs 05/06/25 lanolin 50 % topical ointment 1 applic topical TID PRN skin 05/06/25 irritation #15 tubes ondansetron 4 mg disintegrating 4 mg PO Q8H PRN nausea and 05/08/25 tablet vomiting #20 tabs Allergies Allergy/AdvReac Type Severity Reaction Status Date / Time pineapple Allergy Severe HIVES, Verified 06/15/25 12:18 DIFF. BREATHING Review of Systems Review of Systems Systems Reviewed: All systems reviewed, normal except as documented Past Medical History Past Medical History NEUROLOGIC: Positive Neurological Disorders and Seizures GASTROINTESTINAL: Positive Gastrointestinal Disorders and Gall Bladder Disease (CHOLECYSTECTOMY) REPRODUCTIVE: Positive Breast Cancer and Previous Pregnancies ENT: Positive Deafness HEMATOLOGIC: Positive Blood Disorders and Anemia PSYCHO/SOCIAL: Positive Anxiety OTHER HISTORY: Positive Blood Transfusions and Breast Cancer Family History FAMILY HISTORY: Positive Family Cardiac Disorders and Family Cancer Surgical History SURGICAL: Positive Tympanostomy Tube and Tonsillectomy Social History SMOKING STATUS: Never smoker SECOND HAND EXPOSURE: No SUBSTANCE USE: does not use ED Exam General Limitations: Present no limitations General appearance: Present alert and in no apparent distress Head Head exam: Present atraumatic, normocephalic and normal inspection Eye Eye exam: Present normal appearance, PERRL and EOMI ENT ENT exam: Present normal exam, normal oropharynx and mucous membranes moist Neck Neck exam: Present normal inspection, full ROM and trachea midline Chest Chest inspection: Present normal inspection and symmetric chest wall rise Respiratory Respiratory exam: Present normal lung sounds bilaterally Cardiovascular Cardiovascular exam: Present regular rate, normal rhythm and normal heart sounds Abdominal Exam Abdominal exam: Present soft and normal bowel sounds Extremities Exam Extremities exam: Present normal inspection and full ROM Back Exam Back exam: Present normal inspection and full ROM Neurological Exam Neurological exam: Present alert, oriented X3 and CN II-XII intact Psychiatric Psychiatric exam: Present normal affect and normal mood Skin Skin exam: Present warm, dry, intact and normal color Course Quality Measures none Orders Category Date Time Status US pelvic complete Stat Exams 06/15/25 12:59 Completed Antibody Identification Stat Lab 06/15/25 14:06 Results CBC Stat Lab 06/15/25 14:06 Completed Comprehensive Metabolic Panel Stat Lab 06/15/25 14:06 Completed Hemoglobin and Hematocrit Stat Lab 06/15/25 16:30 Completed Partial Thromboplastin Time Stat Lab 06/15/25 14:06 Completed Prothrombin Time with INR Stat Lab 06/15/25 14:06 Completed Type and Screen Stat Lab 06/15/25 14:06 Results Vital Signs Vital signs: Vital Signs Temperature 98.6 F 06/15/25 12:55 Pulse Rate 67 06/15/25 12:55 Respiratory Rate 16 06/15/25 12:55 Blood Pressure 112/60 06/15/25 12:55 Pulse Oximetry (%) 96 06/15/25 12:55 Oxygen Delivery Method Room Air 06/15/25 12:55 Vaginal Bleeding MDM Narrative MDM Narrative: Malou Orr am scribing for and in the presence of Dr. Gee. Patient is a 24-year-old female that send emergency primary concerns for vaginal bleeding. Vital signs and exam as above. Concern for symptomatic anemia, retained products of conception, hormonal dysregulation among others. Prior provider evaluated patient. Ordered labs, pelvic ultrasound offered medication for symptom relief. Labs without leukocytosis, initial hemoglobin 12 downtrending to 11.8. No significant metabolic disturbance, patient with an AST of 66, ALT of 119. Patient blood type is a positive. Platelets normal. Pelvic ultrasound markable. On reevaluation patient hemodynamically stable, nitrous, abdomen soft nondistended nontender. Patient states that she feels better. 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 Patient discharged home hemodynamically stable not distressed Patient data External records reviewed:: [facility] previous records Clinical information provided by:: patient Social determinants that could affect healthcare access:: none Patient has the following chronic illnesses:: Past medical history is notable for anemia, currently managed with iron supplementation, and a history of cholecystectomy. No known drug allergies. Blood type is O positive. How is presenting disease/condition affected by chronic disease/condition?: exacerbated by Evaluation data The following diagnostics were reviewed and interpreted by me:: lab results and radiology exam(s) Lab and/or radiology exams considered but not ordered:: none Interpretation Summary: Procedure(s): US pelvic complete Accession Number(s): [id number] cc: Jeni (VIBHA),Reji DUNNE; James Roberts MD; NO PRIMARY/FAMILY,PHYSICIAN~ Examination: Pelvic ultrasound, transabdominal, complete Technique: Transabdominal ultrasound of the pelvis performed using grayscale imaging Date and time of exam: June 15, 2025 1326 hours INDICATIONS: Vaginal bleeding beginning yesterday, May 05, 2025 FINDINGS: Uterus 7.8 cm endometrial stripe 1.7 cm No uterine mass or intrauterine gestation, no retained process of conception Right ovary 3.1 cm arterial flow Left ovary 3.0 cm arterial flow IMPRESSION: Negative study Dictated By: James Roberts MD Medications / Prescriptions Medications or Prescriptions considered but not ordered:: none Medication administrations:: see above if any Consultations Consultation(s) initiated? (list below): No Diagnosis Vaginal Bleeding Differential Diagnosis: other (Secondary hemorrhage, retained products of conception, and endometritis.) Most likely diagnosis given after review of the tests above:: Abnormal vaginal bleeding Admission Indicated Admission indicated?: not indicated Admission Request Was there a request for admission?: No Disposition Plan Disposition Plan: Discharge Discharge Attestation Discharge Attestation: The patient and all family members were given an opportunity to ask questions and understood the discharge instructions. Discharge instructions specifically effects, indications for sooner follow up or return to the emergency department, and the expected course of current diagnosis. Patient condition: Stable Discharge Plan Plan Patient Disposition: HOME (Self Care) Prescriptions/Referrals Prescriptions/Med Rec: No Action omeprazole 20 mg capsule,delayed release(DR/EC) 20 mg PO QDAY Qty: 30 0RF docusate sodium [Colace] 100 mg capsule 100 mg PO BID Qty: 60 0RF ibuprofen 600 mg tablet 600 mg PO Q6H PRN (Reason: pain) Qty: 90 0RF lanolin 50 % ointment 1 applic topical TID PRN (Reason: skin irritation) Qty: 15 0RF ferrous sulfate 325 mg (65 mg iron) tablet 325 mg PO .qod Vitamin 27 mg iron- 800 mcg tablet 1 tab PO .q day Patient Comments: TAKE 1 TABLET BY MOUTH EVERY DAY ondansetron 4 mg tablet,disintegrating 4 mg PO Q8H PRN (Reason: nausea and vomiting) Qty: 20 0RF Referrals: No Primary/Family,Physician [Primary Care Provider] - In 1 week Problem List Clinical Impression: care following vaginal delivery, Abnormal vaginal bleeding Patient/Caregiver Discharge Instructions Education Materials: ED Dysfunctional Uterine Bleeding Additional Instructions: Please follow-up with your railroad signal and switch operator within the next 1 to 2 days. Return immediately if you feel lightheaded, shortness of breath, worsening bleeding or any other symptoms of concern. Print Language: Stateless Stand Alone Forms: [facility] Info., Patient Portal Info Letter
--- NOTE | 2025-06-15 20:07 | PC.NURSE ---
PT WAS CALLED NO ANSWER dc N/A 1917, 1938, 2006
== END 2025-06-15 20:08 | disposition left against medical advice (07) ==
PROVIDERS: Nurse Practitioner Primary Care; Emergency Provider Emergency Medicine
DX: O72.1 Other immediate postpartum hemorrhage (principal); Z53.29 Procedure and treatment not carried out because of patient's decision for other reasons
CPT/HCPCS: 36415; 76856; 80053; 85014; 85018; 85025; 85610; 85730; 86850; 86870; 86900; 86901; 99282

== ENCOUNTER 2025-10-22 15:02 | Emergency (ER) | payer MEDICAID, SELFPAY ==
[2025-10-22 15:40] VITALS: BP 114/77; PULSE 75; RESP 18; TEMP 36.4; O2SAT 99; BMI 33.3
--- NOTE | 2025-10-22 15:55 | EDNOTE_ITS ---
ED Ear RME/HPI General Chief complaint: Ear Stated complaint: RIGHT SIDED EAR PAIN SINCE THIS AM Time Seen by Provider: 10/22/25 15:10 Arrival date/time: 10/22/25 15:02 25 years female patient came in for evaluation regarding right ear ache. Onset of symptoms since earlier this morning, patient woke up with pain to the right ear, described as sharp pain, severity moderate. Patient is been sick with flulike symptoms last week. Denies any other complaints. History of otitis media in the past. Related Data Home Medications ?Medication ?Instructions ?Recorded ?Confirmed ferrous sulfate 325 mg (65 mg 325 mg PO .qod 02/12/25 04/12/25 iron) tablet vits no.130-ferrous fum 1 tab PO .q day 02/1204/12/25 27 mg iron-folic acid 800 mcg tablet ( Vitamin) Previous Rx's ?Medication ?Instructions ?Recorded omeprazole 20 mg capsule,delayed 20 mg PO QDAY #30 cap s 04/12/25 release docusate sodium 100 mg capsule 100 mg PO BID #60 caps 05/06/25 (Colace) ibuprofen 600 mg tablet 600 mg PO Q6H PRN pain #90 t abs 05/06/25 lanolin 50 % topical ointment 1 applic topical TID PRN skin 05/06/25 irritation #15 tubes ondansetron 4 mg disintegrating 4 mg PO Q8H PRN nausea and 05/08/25 tablet vomiting #20 tabs amoxicillin 875 mg-potassium 1 tab PO BID #14 tabs clavulanate 125 mg tablet ibuprofen 800 mg tablet 800 mg PO Q8H PRN pain #30 t abs 10/22/25 Allergies Allergy/AdvReac Type Severity Reaction Status Date / Time pineapple Allergy Severe HIVES, Verified 10/22/25 15:07 DIFF. BREATHING Review of Systems Review of Systems Narrative Review of Systems: Review of system reviewed and within normal limits except mentioned in HPI ED Exam Narrative Physical exam: VITAL SIGNS: Reviewed. GENERAL APPEARANCE: Alert and interactive, follows commands, no acute distress, HEAD AND FACE: Non-traumatic. ENT: PERRL, pink conjunctivitis, eyelid no trauma, Mucous membrane moist. Bilateral tympanic membrane with erythema bulging and tender NECK: Supple, nontender, no nuchal rigidity. CHEST: No tenderness, no crepitus, no paradoxical movement, no retractions. LUNGS: Clear, well ventilated, symmetric, no rales, no wheezing, no ronchi, no stridor, good breath sounds bilaterally. HEART: Regular rate, regular rhythm, no murmur, no gallops. ABDOMEN: Soft, positive bowel sounds, nondistended, no guarding, nontender, no rebound, no masses, RECTAL: Deferred. GENITAL: Deferred. NEUROLOGICAL: Gross motor function intact sensory function intact, Appropriate for age. MUSCULOSKELETAL: low back nontender, full range of motion. EXTREMITIES: Nontender, full range of motion. SKIN: Color pink, dry, no rash, no lacerations, no abrasions, no contusions. LYMPHATICS: Deferred. Course Quality Measures none Orders Category Date Time Status Amoxicillin/Pot Clav 875 [Augmentin 875] Med 10/22/25 15:54 Discontinued 1 tab PO X1 ONE Ketorolac Inj [Toradol Inj] Med 10/22/25 15:54 Discontinued 30 mg IM X1 ONE Vital Signs Vital signs: Vital Signs Temperature 97.5 F 10/22/25 15:40 Pulse Rate 75 10/22/25 15:40 Respiratory Rate 18 10/22/25 15:40 Blood Pressure 114/77 10/22/25 15:40 Pulse Oximetry (%) 99 10/22/25 15:40 Oxygen Delivery Method Room Air 10/22/25 15:40 Ear MDM Narrative MDM Narrative:: 25 years female patient came in for evaluation regarding right ear ache. Onset of symptoms since earlier this morning, patient woke up with pain to the right ear, described as sharp pain, severity moderate. Patient is been sick with flulike symptoms last week. Denies any other complaints. History of otitis media in the past. Empiric antibiotic treatment started in the emergency room. For otitis media Patient data External records reviewed:: None Clinical information provided by:: patient Social determinants that could affect healthcare access:: none Patient has the following chronic illnesses:: None How is presenting disease/condition affected by chronic disease/condition?: exacerbated by Evaluation data The following diagnostics were reviewed and interpreted by me:: other (specify) (none) Lab and/or radiology exams considered but not ordered:: None Interpretation Summary: none Medications / Prescriptions Medications or Prescriptions considered but not ordered:: None Medication administrations:: Medication Administration History Discontinued Medications Amoxicillin/Clavulanate Potassium (Amoxicillin/Pot Clav 875 Tablet) 1 tab PO X1 ONE Stop: 10/22/25 15:55 Ketorolac Tromethamine (Ketorolac Inj 30 Mg/Ml Vial) 30 mg IM X1 ONE Stop: 10/22/25 15:55 Toradol amoxicillin clavulanic acid Consultations Consultation(s) initiated? (list below): No Diagnosis Ear Differential Diagnosis: otitis externa, otitis media and foreign body in ear Most likely diagnosis given after review of the tests above:: OM Admission Indicated Admission indicated?: not indicated Admission Request Was there a request for admission?: No Disposition Plan Disposition Plan: Discharge Discharge Attestation Discharge Attestation: The patient was given an opportunity to ask questions and understood the discharge instructions. Discharge instructions specifically effects, indicati ons for sooner follow up or return to the emergency department, and the expected course of current diagnosis. Patient condition: Stable Discharge Plan Plan Patient Disposition: HOME (Self Care) Discharge Disposition comment: Stable Prescriptions/Referrals Prescriptions/Med Rec: New ibuprofen 800 mg tablet 800 mg PO Q8H PRN (Reason: pain) Qty: 30 0RF amoxicillin-pot clavulanate 875-125 mg tablet 1 tab PO BID Qty: 14 0RF No Action omeprazole 20 mg capsule,delayed release(DR/EC) 20 mg PO QDAY Qty: 30 0RF docusate sodium [Colace] 100 mg capsule 100 mg PO BID Qty: 60 0RF ibuprofen 600 mg tablet 600 mg PO Q6H PRN (Reason: pain) Qty: 90 0RF lanolin 50 % ointment 1 applic topical TID PRN (Reason: skin irritation) Qty: 15 0RF ferrous sulfate 325 mg (65 mg iron) tablet 325 mg PO .qod Vitamin 27 mg iron- 800 mcg tablet 1 tab PO .q day Patient Comments: TAKE 1 TABLET BY MOUTH EVERY DAY ondansetron 4 mg tablet,disintegrating 4 mg PO Q8H PRN (Reason: nausea and vomiting) Qty: 20 0RF Problem List Clinical Impression: Otitis media Patient/Caregiver Discharge Instructions Discharge Activity: activity as tolerated Education Materials: When to Use Antibiotics Additional Instructions: Thank you for the opportunity for serving you today. You are stable for discharged . You are advised to: Follow-up with your PCP in 1 to 2 days Return to ED for worsening of symptoms Increase oral fluids Take medication as prescribed Print Language: Israeli Stand Alone Forms: [facility] Info., Patient Portal Info Letter PA/MEMBERSHIP ADVISOR Supervising Physician PA/MEMBERSHIP ADVISOR Supervising Physician: MD Bernardo
[2025-10-22] MEDS: AMOXICILLIN/POT CLAV 875 TABLET 1 TAB PO (17:22)
[2025-10-22] MEDS: KETOROLAC INJ 30 MG/ML VIAL IM (17:23)
== END 2025-10-22 17:23 | disposition home or self-care (01) ==
LOC: SERX 16:34
PROVIDERS: Emergency Provider Nurse Practitioner Family
DX: H66.91 Otitis media, unspecified, right ear (principal)
CPT/HCPCS: 96372; 99282; J1885; A9270